=== PATIENT | male | born 1940 | race Caucasian/White ===

== ENCOUNTER → 2017-10-07 | Outpatient (CLI) | payer OTHER ==
[2017-10-07 09:12] LABS: BASO % 0.6 % (0.0-1.0); EOS # 0.1 10^3/uL (0.0-0.50); EOS % 1.8 % (0.0-3.0); HEMATOCRIT 46.6 % (42.0-52.0); HEMOGLOBIN 15.8 g/dl (14.0-18.0); IMMATURE GRANULOCYTE % 0.2 % (0-0); LYMPH # 0.6 10^3/uL (1.5-4.5); LYMPH % 12.3 % (24.0-44.0); MEAN CORPUSCULAR HEMOGLOBIN 30.9 pg (27.0-33.0); MEAN CORPUSCULAR HGB CONC 33.9 g/dl (32.0-36.5); MEAN CORPUSCULAR VOLUME 91.2 fl (80.0-96.0); MONO # 0.6 10^3/uL (0.0-0.8); MONO % 11.9 % (0.0-5.0); NEUTROPHILS # 3.6 10^3/uL (1.8-7.7); NEUTROPHILS % 73.2 % (36.0-66.0); PLATELET COUNT, AUTOMATED 174 10^3/uL (150-450); RED BLOOD COUNT 5.11 10^6/uL (4.30-6.10); RED CELL DISTRIBUTION WIDTH 13.9 % (11.5-14.5); WHITE BLOOD COUNT 4.9 10^3/uL (4.0-10.0)
[2017-10-07 09:45] LABS: ALBUMIN/GLOBULIN RATIO 1.18 (1.00-1.93); ALKALINE PHOSPHATASE 107 U/L (45-117); ALT/SGPT 23 U/L (12-78); ANION GAP 6 MEQ/L (8-16); AST/SGOT 27 U/L (7-37); BILIRUBIN,TOTAL 0.7 MG/DL (0.2-1.0); BLOOD UREA NITROGEN 17 MG/DL (7-18); CALCIUM LEVEL 9.6 MG/DL (8.8-10.2); CARBON DIOXIDE LEVEL 32 MEQ/L (21-32); CHLORIDE LEVEL 101 MEQ/L (98-107); CHOLESTEROL LEVEL 179 MG/DL (<200); CHOLESTEROL RISK RATIO 2.887 (<5); CREATININE FOR GFR 0.97 MG/DL (0.70-1.30); GLOMERULAR FILTRATION RATE > 60.0 (>42); GLUCOSE, FASTING 87 MG/DL (83-110); HDL CHOLESTEROL 62 MG/DL (>40); LDL CHOLESTEROL 83.4 MG/DL (<100); NON-HDL-C 117 MG/DL; POTASSIUM SERUM 3.9 MEQ/L (3.5-5.1); SODIUM LEVEL 139 MEQ/L (136-145); TOTAL PROTEIN 7.4 GM/DL (6.4-8.2); TRIGLYCERIDES LEVEL 168 MG/DL (<150)
== END ==
LOC: M LAB 08:09
DX: I10 Essential (primary) hypertension (principal)
CPT/HCPCS: 80053

== ENCOUNTER 2017-12-21 23:34 | Emergency (ER) | payer OTHER ==
[2017-12-22 00:26] LABS: BASO % 0.5 % (0.0-1.0); EOS # 0.1 10^3/uL (0.0-0.50); EOS % 2.1 % (0.0-3.0); HEMATOCRIT 43.5 % (42.0-52.0); HEMOGLOBIN 14.8 g/dl (13.5-17.5); IMMATURE GRANULOCYTE % 0.5 % (0-3.0); LYMPH # 1.7 10^3/uL (1.5-4.5); LYMPH % 26.4 % (24.0-44.0); MEAN CORPUSCULAR HEMOGLOBIN 30.7 pg (27.0-33.0); MEAN CORPUSCULAR VOLUME 90.2 fl (80.0-96.0); MONO # 0.6 10^3/uL (0.0-0.8); MONO % 9.6 % (0.0-5.0); NEUTROPHILS # 3.8 10^3/uL (1.8-7.7); NEUTROPHILS % 60.9 % (36.0-66.0); PLATELET COUNT, AUTOMATED 228 10^3/uL (150-450); RED BLOOD COUNT 4.82 10^6/uL (4.30-6.10); WHITE BLOOD COUNT 6.2 10^3/uL (4.0-10.0)
[2017-12-22 00:35] LABS: ALBUMIN 4.1 GM/DL (3.2-5.2); ALBUMIN/GLOBULIN RATIO 1.17 (1.00-1.93); ALKALINE PHOSPHATASE 106 U/L (45-117); ALT/SGPT 19 U/L (12-78); ANION GAP 5 MEQ/L (8-16); AST/SGOT 20 U/L (7-37); BILIRUBIN,DIRECT 0.1 MG/DL (0.0-0.2); BILIRUBIN,TOTAL 0.4 MG/DL (0.2-1.0); BLOOD UREA NITROGEN 19 MG/DL (7-18); CALCIUM LEVEL 9.4 MG/DL (8.8-10.2); CARBON DIOXIDE LEVEL 29 MEQ/L (21-32); CHLORIDE LEVEL 105 MEQ/L (98-107); CREATININE FOR GFR 0.85 MG/DL (0.70-1.30); GLOMERULAR FILTRATION RATE > 60.0 (>42); GLUCOSE, FASTING 101 MG/DL (70-100); POTASSIUM SERUM 3.7 MEQ/L (3.5-5.1); SODIUM LEVEL 139 MEQ/L (136-145); TOTAL PROTEIN 7.6 GM/DL (6.4-8.2)
[2017-12-22] MEDS: ONDANSETRON 4 MG ORAL DISINTEGRATING TAB (S0181) PO (01:00)
[2017-12-22] MEDS: MECLIZINE 25 MG TABLET PO (01:00)
== END 2017-12-22 01:00 | disposition home or self-care (01) ==
LOC: M ED 23:34
DX: R42 Dizziness and giddiness (principal); I10 Essential (primary) hypertension; E78.5 Hyperlipidemia, unspecified; Z87.19 Personal history of other diseases of the digestive system; Z85.46 Personal history of malignant neoplasm of prostate
CPT/HCPCS: 93005

== ENCOUNTER → 2018-08-25 | Outpatient (CLI) | payer OTHER ==
[2018-08-25 09:33] LABS: BASO # 0.1 10^3/uL (0.0-0.2); BASO % 0.8 % (0.0-1.0); EOS # 0.1 10^3/uL (0.0-0.50); EOS % 1.6 % (0.0-3.0); HEMATOCRIT 46.1 % (42.0-52.0); IMMATURE GRANULOCYTE % 0.2 % (0-3.0); LYMPH # 1.3 10^3/uL (1.5-4.5); LYMPH % 21.4 % (24.0-44.0); MEAN CORPUSCULAR HEMOGLOBIN 32.3 pg (27.0-33.0); MEAN CORPUSCULAR HGB CONC 34.7 g/dl (32.0-36.5); MEAN CORPUSCULAR VOLUME 92.9 fl (80.0-96.0); MONO # 0.6 10^3/uL (0.0-0.8); MONO % 9.8 % (0.0-5.0); NEUTROPHILS # 4.1 10^3/uL (1.8-7.7); NEUTROPHILS % 66.2 % (36.0-66.0); PLATELET COUNT, AUTOMATED 230 10^3/uL (150-450); RED BLOOD COUNT 4.96 10^6/uL (4.30-6.10); RED CELL DISTRIBUTION WIDTH 13.4 % (11.5-14.5); WHITE BLOOD COUNT 6.1 10^3/uL (4.0-10.0)
[2018-08-25 09:52] LABS: ALBUMIN 4.2 GM/DL (3.2-5.2); ALBUMIN/GLOBULIN RATIO 1.35 (1.00-1.93); ALKALINE PHOSPHATASE 103 U/L (45-117); ALT/SGPT 22 U/L (12-78); ANION GAP 6 MEQ/L (8-16); AST/SGOT 20 U/L (7-37); BILIRUBIN,TOTAL 0.9 MG/DL (0.2-1.0); BLOOD UREA NITROGEN 21 MG/DL (7-18); CALCIUM LEVEL 9.9 MG/DL (8.8-10.2); CARBON DIOXIDE LEVEL 30 MEQ/L (21-32); CHLORIDE LEVEL 102 MEQ/L (98-107); CHOLESTEROL LEVEL 214 MG/DL (<200); CHOLESTEROL RISK RATIO 3.962 (<5); CREATININE FOR GFR 1.08 MG/DL (0.70-1.30); GLOMERULAR FILTRATION RATE > 60.0 (>42); GLUCOSE, FASTING 98 MG/DL (70-100); HDL CHOLESTEROL 54 MG/DL (>40); LDL CHOLESTEROL 116 MG/DL (<100); NON-HDL-C 160 MG/DL; POTASSIUM SERUM 4.4 MEQ/L (3.5-5.1); SODIUM LEVEL 138 MEQ/L (136-145); TOTAL PROTEIN 7.3 GM/DL (6.4-8.2); TRIGLYCERIDES LEVEL 222 MG/DL (<150)
== END ==
LOC: M LAB 08:45
DX: I10 Essential (primary) hypertension (principal)
CPT/HCPCS: 80053

== ENCOUNTER → 2019-10-06 | Outpatient (CLI) | payer MEDICARE ==
[~2019-10-06] MED LIST: APRI0.37 PO; ATIV0.5T; ATIV1TAB2; ATOR40TA75 PO; AZATPOW; CENTTAB47 PO; CIPR500T19; COLA100C2; COLA100C5 PO; COLA50CA; CRES20TA; ENTOCORT; ENTOCORT EC; LISI20TA20 PO; LISI20TA5; LORA0.5T5 PO; MECL1TAB31 PO; ONDA-1; PENTASA; PRED20TA; PROT1TAB2; SUCR1TAB56; ZOFR4TAB14 PO; ZOLO50TA
[2019-10-06 09:23] LABS: HEMATOCRIT 47.9 % (42.0-52.0); HEMOGLOBIN 15.7 g/dl (13.5-17.5); MEAN CORPUSCULAR HEMOGLOBIN 30.8 pg (27.0-33.0); MEAN CORPUSCULAR HGB CONC 32.8 g/dl (32.0-36.5); MEAN CORPUSCULAR VOLUME 94.1 fl (80.0-96.0); PLATELET COUNT, AUTOMATED 205 10^3/uL (150-450); RED BLOOD COUNT 5.09 10^6/uL (4.30-6.10); WHITE BLOOD COUNT 5.7 10^3/uL (4.0-10.0)
[2019-10-06 09:49] LABS: ALBUMIN 4.2 GM/DL (3.2-5.2); ALT/SGPT 19 U/L (12-78); BLOOD UREA NITROGEN 18 MG/DL (7-18); CALCIUM LEVEL 9.3 MG/DL (8.8-10.2); CARBON DIOXIDE LEVEL 28 MEQ/L (21-32); CHLORIDE LEVEL 105 MEQ/L (98-107); CHOLESTEROL LEVEL 231 MG/DL (<200); CHOLESTEROL RISK RATIO 3.347 (<5); CREATININE FOR GFR 1.03 MG/DL (0.70-1.30); GLOMERULAR FILTRATION RATE > 60.0 (>35); GLUCOSE, FASTING 91 MG/DL (70-100); HDL CHOLESTEROL 69 MG/DL (>40); LDL CHOLESTEROL 112 MG/DL (<100); NON-HDL-C 162 MG/DL; POTASSIUM SERUM 3.9 MEQ/L (3.5-5.1); PROSTATIC SPECIFIC AG MONITOR 0.02 NG/ML (< 4.00); SODIUM LEVEL 141 MEQ/L (136-145); TOTAL PROTEIN 7.4 GM/DL (6.4-8.2); TRIGLYCERIDES LEVEL 248 MG/DL (<150)
== END ==
LOC: M LAB 09:03
PROVIDERS: ATTEND Family Medicine
DX: C61 Malignant neoplasm of prostate (principal); E78.00 Pure hypercholesterolemia, unspecified

== ENCOUNTER → 2020-04-04 | Outpatient (CLI) | payer MEDICARE ==
[2020-04-04 13:33] LABS: HEMATOCRIT 47.3 % (42.0-52.0); HEMOGLOBIN 16.1 g/dl (13.5-17.5); MEAN CORPUSCULAR HEMOGLOBIN 31.9 pg (27.0-33.0); MEAN CORPUSCULAR VOLUME 93.7 fl (80.0-96.0); PLATELET COUNT, AUTOMATED 246 10^3/uL (150-450); RED BLOOD COUNT 5.05 10^6/uL (4.30-6.10); WHITE BLOOD COUNT 6.9 10^3/uL (4.0-10.0)
[2020-04-04 14:02] LABS: ERYTHROCYTE SEDIMENTATION RATE 5 mm/hr (0-20)
[2020-04-04 14:16] LABS: ALBUMIN 4.4 GM/DL (3.2-5.2); ALT/SGPT 19 U/L (12-78); BILIRUBIN,DIRECT 0.2 MG/DL (0.0-0.2); BLOOD UREA NITROGEN 15 MG/DL (7-18); C REACTIVE PROTEIN QUANTITATIV < 0.30 MG/DL (0.00-0.30); CALCIUM LEVEL 10.1 MG/DL (8.8-10.2); CARBON DIOXIDE LEVEL 29 MEQ/L (21-32); CHLORIDE LEVEL 102 MEQ/L (98-107); CREATININE FOR GFR 1.04 MG/DL (0.70-1.30); GLOMERULAR FILTRATION RATE > 60.0 (>35); GLUCOSE, FASTING 84 MG/DL (70-100); LDH LACTATE DEHYDROGENASE 114 U/L (87-241); POTASSIUM SERUM 4.4 MEQ/L (3.5-5.1); PROSTATIC SPECIFIC AG MONITOR 0.02 NG/ML (< 4.00); SODIUM LEVEL 138 MEQ/L (136-145); THYROID STIMULATING HORMONE 0.215 uIU/ML (0.358-3.740); TOTAL PROTEIN 7.6 GM/DL (6.4-8.2)
[2020-04-04 14:36] LABS: APPEARANCE, URINE MANUAL CLOUDY (CLEAR); COLOR, URINE MANUAL YELLOW (YELLOW); GLUCOSE, URINE (UA) MANUAL NEGATIVE (NEGATIVE); PROTEIN, URINE MANUAL TRACE mg/dL (NEGATIVE)
[2020-04-04 14:38] LABS: BILIRUBIN, URINE MANUAL NEGATIVE (NEGATIVE); KETONE, URINE MANUAL NEGATIVE (NEGATIVE); UROBILINOGEN, URINE MANUAL NORMAL (NORMAL)
[2020-04-04 14:39] LABS: NITRITE, URINE MANUAL NEGATIVE (NEGATIVE)
[2020-04-04 14:40] LABS: BLOOD URINE MANUAL NEGATIVE (NEGATIVE); LEUKOCYTE ESTERASE, URINE MAN NEGATIVE (NEGATIVE)
[2020-04-04 14:41] LABS: RBC, URINE NONE SEEN /hpf (0-3); SQUAMOUS EPITHELIAL CELL URINE NONE SEEN /hpf (SMALL AMT); WBC, URINE NONE SEEN /hpf (0-3)
[2020-04-04 14:42] LABS: AMORPHOUS SEDIMENT, URINE LARGE AMOUNT (NEGATIVE); BACTERIA, URINE NONE SEEN; HYALINE CAST, URINE NONE SEEN /lpf (0-1)
--- NOTE | 2020-04-04 23:44 | REP ---
REASON FOR EXAM: Weight loss. Latest prior for comparison is 10/09/2012, a portable exam. Cardiomediastinal silhouette is within normal limits and essentially unchanged. The heart is not enlarged. There is mild lung field hyperexpansion. In the right upper lobe, there is a potential tiny nodule. This could represent a vessel en face; however, it was not present on the portable examination of 10/09/2012, nor was it present on the PA view of the chest of 12/05/2011. The lung del real are mildly hyperexpanded but otherwise clear. The heart is not enlarged. The pleural angles are sharp. The osseous structures are within normal limits for the patient's age. IMPRESSION: Possible small right upper lobe nodule, as described above. Contrast-enhanced CT examination of the chest should be considered. Electronically Signed by Jesus Billingsley DO 04/05/2020 11:32 A
== END ==
LOC: M WUC 11:39
PROVIDERS: ATTEND Family Medicine
DX: R63.4 Abnormal weight loss (principal); C61 Malignant neoplasm of prostate; R91.8 Other nonspecific abnormal finding of lung field

== ENCOUNTER → 2020-04-21 | Outpatient (REF) | payer MEDICARE ==
[2020-05-22 06:20] LABS: FREE T3 3.5 PG/ML (2.2-4.0); FREE T4 1.24 NG/DL (0.76-1.46); THYROID STIMULATING HORMONE 0.165 uIU/ML (0.358-3.740)
== END ==
LOC: M WUC 13:53
PROVIDERS: ATTEND Family Medicine
DX: E07.9 Disorder of thyroid, unspecified (principal)

== ENCOUNTER → 2020-07-06 | Outpatient (CLI) | payer MEDICARE ==
[2020-07-06 13:44] LABS: FREE T3 3.3 PG/ML (2.2-4.0); FREE T4 1.12 NG/DL (0.76-1.46); THYROID STIMULATING HORMONE 0.398 uIU/ML (0.358-3.740)
== END ==
LOC: M WUC 10:28
PROVIDERS: ATTEND Family Medicine
DX: E07.9 Disorder of thyroid, unspecified (principal)

== ENCOUNTER → 2020-07-12 | Outpatient (CLI) | payer MEDICARE ==
[2020-07-12 20:24] LABS: BLOOD UREA NITROGEN 17 MG/DL (7-18); CALCIUM LEVEL 9.8 MG/DL (8.8-10.2); CARBON DIOXIDE LEVEL 30 MEQ/L (21-32); CHLORIDE LEVEL 103 MEQ/L (98-107); CREATININE FOR GFR 1.07 MG/DL (0.70-1.30); GLOMERULAR FILTRATION RATE > 60.0 (>35); GLUCOSE, FASTING 73 MG/DL (70-100); POTASSIUM SERUM 4.3 MEQ/L (3.5-5.1); SODIUM LEVEL 139 MEQ/L (136-145)
== END ==
LOC: M WUC 15:32
PROVIDERS: ATTEND Family Medicine
DX: I10 Essential (primary) hypertension (principal)

== ENCOUNTER → 2020-07-15 | Outpatient (CLI) | payer MEDICARE ==
[~2020-07-15] MED LIST changes: +ISOVUE-370 76% 100ML VIAL As Ordered ONE
--- NOTE | 2020-07-15 12:24 | REP ---
INDICATION: SOLITARY PULMONARY NODULE COMPARISON: 08/26/2009 TECHNIQUE: Axial contrast enhanced images from the thoracic inlet to the upper abdomen with coronal and sagittal reformations using 75 ml Isovue 370 intravenous contrast material. This CT examination was performed using the following dose reduction techniques: Automated exposure control, adjustment of mA and/or kv according to the patient's size, and use of iterative reconstruction technique. FINDINGS: The bilateral lung del real are relatively well aerated and demonstrate chronic age-related interstitial changes with very minimal basilar scarring. The questionable tiny nodule suggested on recent x-ray may be related to a very small 4 mm area of density in the right upper lobe (image 31) which is otherwise nonspecific and may represent small scar versus nodule. No further consolidation or suspicious nodule/mass. Tracheobronchial tree is patent. No effusion. No pneumothorax. No significant adenopathy is appreciated. Mediastinum demonstrates relatively normal thoracic aorta, pulmonary vasculature, and heart/pericardium although mild atherosclerotic changes to the coronary arteries is suggested. The osseous structures demonstrate osteopenia and degenerative changes throughout the visualized thoracolumbar spine. Somewhat irregular lytic changes involving T9-T11 are nonspecific. IMPRESSION: 1. The possible tiny nodule on chest x-ray may correspond to a small 3-4 mm somewhat irregular nodule versus scar in the right upper lobe. Based on Fleischner society criteria, a 12 month follow-up examination may be warranted to confirm stability <Electronically signed by Chris Mckeon > 07/15/20 [id number]
== END ==
LOC: M RAD 10:23
PROVIDERS: ATTEND Family Medicine
DX: R91.1 Solitary pulmonary nodule (principal)
CPT/HCPCS: 71260; Q9967

== ENCOUNTER → 2020-09-08 | Outpatient (CLI) | payer MEDICARE ==
[~2020-09-08] MED LIST changes: -ISOVUE-370 76% 100ML VIAL As Ordered ONE
== END ==
LOC: M LABSMTC 13:03
PROVIDERS: ATTEND Pediatrics
DX: Z11.59 Encounter for screening for other viral diseases (principal)

== ENCOUNTER 2020-09-23 15:03 | Emergency (ER) | payer MEDICARE ==
[~2020-09-23] VITALS: Ht 165.1 cm; Wt 62.3 kg
[2020-09-23] MEDS ORDERED: NS 1,000 ML IV SCH (15:22)
[2020-09-23] MEDS ORDERED: NS 500 ML IV ONE (15:30)
[2020-09-23] MEDS ORDERED: ONDANSETRON 4MG/2ML VIAL IV ONE (15:30)
[2020-09-23 16:03] LABS: BASO % 0.5 % (0.0-1.0); EOS # 0.1 10^3/uL (0.0-0.5); HEMATOCRIT 47.3 % (42.0-52.0); HEMOGLOBIN 15.7 g/dl (13.5-17.5); LYMPH # 1.4 10^3/uL (1.5-5.0); LYMPH % 16.9 % (24.0-44.0); MEAN CORPUSCULAR HEMOGLOBIN 30.1 pg (27.0-33.0); MEAN CORPUSCULAR HGB CONC 33.2 g/dl (32.0-36.5); MEAN CORPUSCULAR VOLUME 90.8 fl (80.0-96.0); MONO # 0.6 10^3/uL (0.0-0.8); MONO % 7.3 % (0.0-5.0); NEUTROPHILS # 6.1 10^3/uL (1.5-8.5); NEUTROPHILS % 73.9 % (36.0-66.0); PLATELET COUNT, AUTOMATED 256 10^3/uL (150-450); RED BLOOD COUNT 5.21 10^6/uL (4.30-6.10); WHITE BLOOD COUNT 8.3 10^3/uL (4.0-10.0)
[2020-09-23 16:35] LABS: ALBUMIN 3.6 GM/DL (3.2-5.2); ALT/SGPT 18 U/L (12-78); BILIRUBIN,DIRECT 0.1 MG/DL (0.0-0.2); BILIRUBIN,TOTAL 0.5 MG/DL (0.2-1.0); BLOOD UREA NITROGEN 19 MG/DL (7-18); CALCIUM LEVEL 9.3 MG/DL (8.8-10.2); CARBON DIOXIDE LEVEL 29 MEQ/L (21-32); CHLORIDE LEVEL 104 MEQ/L (98-107); CK-MB VALUE MASS < 1.0 NG/ML (<3.6); CPK CREATINE PHOSPHOKINASE 41 U/L (39-308); CREATININE FOR GFR 0.95 MG/DL (0.70-1.30); GLOMERULAR FILTRATION RATE > 60.0 (>35); GLUCOSE, FASTING 85 MG/DL (70-100); LIPASE 162 U/L (73-393); MB/CK RELATIVE INDEX 2.44 (< OR =4); POTASSIUM SERUM 4.4 MEQ/L (3.5-5.1); SODIUM LEVEL 139 MEQ/L (136-145); TOTAL PROTEIN 6.8 GM/DL (6.4-8.2); TROPONIN I < 0.02 NG/ML (< 0.10)
[2020-09-23] MEDS ORDERED: ISOVUE-370 76% 100ML VIAL As Ordered ONE (16:51)
--- NOTE | 2020-09-23 17:29 | REP ---
INDICATION: abd pain nausea. COMPARISON: 08/05/2009 TECHNIQUE: Axial contrast-enhanced images from the lung bases to the pubic symphysis using 100 cc Isovue 370 intravenous contrast material. Coronal and sagittal reformations obtained. This CT examination was performed using the following dose reduction techniques: Automated exposure control, adjustment of mA and/or kv according to the patient's size, and the use of iterative reconstruction technique. FINDINGS: Liver, spleen, pancreas, gallbladder, bilateral adrenal glands and kidneys are normal. The enteric system demonstrates mild fecal stasis without obstruction. Normal terminal ileum and appendix identified in the right lower quadrant. A very subtle enteritis cannot be excluded. No free air. No free fluid. Pelvis demonstrates normal bladder and age-appropriate prostate/seminal vesicles. No ascites. No free air. No intraperitoneal or retroperitoneal adenopathy. Atherosclerotic changes to the aorta and vasculature noted without aneurysm or dissection. Musculoskeletal structures demonstrate irregular lytic changes to the T7 through T10 vertebral bodies unchanged compared to CT dated 07/15/2020 along with possible mild compression deformity along the superior endplate of L5. IMPRESSION: 1. Mild fecal stasis. Very subtle enteritis cannot be excluded and warrants clinical correlation. 2. No further acute abdominopelvic pathology appreciated. Chronic findings as described above. 3. Chronic lytic changes to the visualized thoracic vertebral bodies along with mild compression deformity along the superior endplate of L5 which is of indeterminate age. <Electronically signed by Chris Mckeon > 09/23/20 [id number]
[2020-09-23] MEDS ORDERED: ZOFR4TAB16 PO (17:42)
[2020-09-23 17:55] VITALS: BP 139/72
--- NOTE | 2020-09-24 08:48 | ED PDOC ---
Post-Departure Follow-Up radiology report faxed to Iesha Brambila MD Sep 24, 2020 08:48
--- NOTE | 2020-09-24 09:23 | ECGEPIP ---
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
== END 2020-09-23 18:17 | disposition home or self-care (01) ==
LOC: M ED 15:03 → EDBD 15:03 → M ED 18:17
DX: R11.0 Nausea (principal); K51.90 Ulcerative colitis, unspecified, without complications; I10 Essential (primary) hypertension; E78.5 Hyperlipidemia, unspecified; E07.9 Disorder of thyroid, unspecified; J45.909 Unspecified asthma, uncomplicated; Z88.5 Allergy status to narcotic agent; Z88.8 Allergy status to other drugs, medicaments and biological substances; Z79.899 Other long term (current) drug therapy; Z85.45 Personal history of malignant neoplasm of unspecified male genital organ
CPT/HCPCS: 74177; 80048; 80076; 82550; 82553; 83690; 84484; 85025; 93005; 96361; 96374; 99284; J2405; Q9967

== ENCOUNTER 2020-12-04 13:06 | Inpatient (IN) | payer MEDICARE ==
[~2020-12-04] VITALS: Ht 165.1 cm; Wt 57.0 kg
[~2020-12-04 13:06] MED LIST changes: +ZOFR4TAB16 PO; -ZOLO50TA; +ZOLO50TA PO
[2020-12-04] MEDS ORDERED: SULF500T2 PO (13:30)
[2020-12-04] MEDS ORDERED: NOXI1TAB PO (13:30)
[2020-12-04] MEDS ORDERED: CARB25TA9 PO (13:30)
[2020-12-04] MEDS ORDERED: ASPI81CH33 PO (13:30)
--- NOTE | 2020-12-04 13:32 | REP ---
INDICATION: CHEST PAIN COMPARISON: 04/04/2020 TECHNIQUE: Portable AP view of the chest FINDINGS: The mediastinum and cardiac silhouette are stable and within normal limits for portable technique. The lung del real demonstrate chronic changes similar to prior examination. Previous small granuloma again identified and appears essentially unchanged. No acute consolidation, effusion, or pneumothorax. Skeletal structures demonstrate age-related changes. IMPRESSION: No acute cardiopulmonary process appreciated. <Electronically signed by Chris Mckeon > 12/04/20 [id number]
[2020-12-04 13:58] LABS: BASO % 0.5 % (0.0-1.0); EOS # 0.1 10^3/uL (0.0-0.5); HEMATOCRIT 45.5 % (42.0-52.0); LYMPH # 0.8 10^3/uL (1.5-5.0); MEAN CORPUSCULAR HEMOGLOBIN 29.6 pg (27.0-33.0); MEAN CORPUSCULAR VOLUME 89.9 fl (80.0-96.0); MONO # 0.8 10^3/uL (0.0-0.8); MONO % 12.4 % (2.0-8.0); NEUTROPHILS # 4.6 10^3/uL (1.5-8.5); NEUTROPHILS % 73.8 % (36.0-66.0); PLATELET COUNT, AUTOMATED 248 10^3/uL (150-450); RED BLOOD COUNT 5.06 10^6/uL (4.30-6.10); WHITE BLOOD COUNT 6.2 10^3/uL (4.0-10.0)
[2020-12-04 14:08] LABS: INR 0.97; PARTIAL THROMBOPLASTIN TIME 28.1 SECONDS (24.2-38.5); PROTHROMBIN TIME 13.1 SECONDS (12.5-14.3)
[2020-12-04 14:31] LABS: ALBUMIN 3.9 GM/DL (3.2-5.2); ALT/SGPT 15 U/L (12-78); BILIRUBIN,DIRECT 0.1 MG/DL (0.0-0.2); BILIRUBIN,TOTAL 0.4 MG/DL (0.2-1.0); BLOOD UREA NITROGEN 12 MG/DL (7-18); CALCIUM LEVEL 9.7 MG/DL (8.8-10.2); CARBON DIOXIDE LEVEL 28 MEQ/L (21-32); CHLORIDE LEVEL 101 MEQ/L (98-107); CK-MB VALUE MASS < 1.0 NG/ML (<3.6); CPK CREATINE PHOSPHOKINASE 31 U/L (39-308); CREATININE FOR GFR 0.78 MG/DL (0.70-1.30); GLOMERULAR FILTRATION RATE > 60.0 (>35); GLUCOSE, FASTING 126 MG/DL (70-100); LIPASE 206 U/L (73-393); MB/CK RELATIVE INDEX 3.23 (< OR =4); NT-PRO BNP 225 PG/ML (<450); POTASSIUM SERUM 3.8 MEQ/L (3.5-5.1); SODIUM LEVEL 134 MEQ/L (136-145); THYROID STIMULATING HORMONE 0.618 uIU/ML (0.358-3.740); TROPONIN I < 0.02 NG/ML (< 0.10)
[2020-12-04] MEDS ORDERED: D31000TA2 PO (16:24)
[2020-12-04] MEDS ORDERED: ASPI81TA26 PO (16:24)
[2020-12-04] MEDS ORDERED: PANT40TA29 PO (16:24)
[2020-12-04] MEDS ORDERED: MULT1TAB74 PO (16:24)
[2020-12-04] MEDS ORDERED: ATIV1TAB10 PO (16:24)
[2020-12-04] MEDS ORDERED: ZOLO100T PO (16:24)
[2020-12-04 17:18] LABS: RSV AMPLIFICATION NEGATIVE (NEGATIVE)
[2020-12-04] MEDS ORDERED: LORazepam 0.5 MG TAB PO PRN (17:20)
[2020-12-04 19:00] VITALS: BP 146/84
--- NOTE | 2020-12-04 19:05 | HPEPDOC ---
General Date of Admission 12/04/20 Date of Service: Dec 04, 2020 Chief Complaint The patient is a 80-year-old male admitted with a reason for visit of WEAK. Source: Patient, RN/MD History of Present Illness 80 year old male with HTN, HLD, Parkinson's disease, inflammatory bowel disease, hiatal hernia, presented to the hospital for waekness and falls at home. Patient says that he came because of headache, stomach problem and weakness. He tends to repeat same word several times. He reports that he has no appetite, his stomach is off for the past 4 to 5 days. But no pain or nausea or vomiting or diarrhea He reports that he has lost about 10 lbs of weight in the past 3 months and he has been feeling very weak. He denies any swallowing difficulty or any choking episodes. He says he fell 4 to 5 times in the past 6 months in the shower, on the stirs. He says these are all because he lost his balance and could not stop himself. He denies loosing any consciousness. Daughter reported to ED staff that he has been very weak and dizzy and has been falling frequently. He was started on Sinemet 3 weeks ago. Last 2 days has been very bad. Today he was so weak that he could not walk unassited and he could hardly even lift a cup. Once his other daughter found him on the floor drooling and incoherent. He was recently started on antiparkinsonian medicine. In the Ed he was noted to be in Bigemini and had some episodes of NSVT. Home Medications Scheduled Aspirin (Aspirin EC) 81 Mg Tablet.dr, 81 MG PO DAILY, (Reported) Atorvastatin Calcium (Atorvastatin Calcium) 40 Mg Tab, 40 MG PO DAILY, (Reported) Carbidopa/Levodopa (Carbidopa-Levodopa 25-100 Tab) 1 Each Tablet, 0.5 TAB PO TID, (Reported) 0700, LUNCH, 1900 Cholecalciferol (Vitamin D3) (Vitamin D3) 1,000 Unit Tablet, 1,000 UNITS PO DAILY, (Reported) Lisinopril/Hydrochlorothiazide (Lisinopril-Hctz 20-25 mg Tab) 1 Tab Tab, 0.5 TAB PO QHS, (Reported) Multivitamin (Multivitamins) 1 Each Tablet, 1 TAB PO DAILY, (Reported) Pantoprazole Sodium (Pantoprazole Sodium) 40 Mg Tablet.dr, 40 MG PO DAILY, (Reported) Sertraline Hcl (Zoloft) 100 Mg Tablet, 100 MG PO DAILY, (Reported) Sulfasalazine (Sulfasalazine) 500 Mg Tablet, 500 MG PO TID, (Reported) Scheduled PRN Lorazepam (Ativan) 0.5 Mg Tablet, 0.5 MG PO BID PRN for ANXIETY/AGITATION, (Reported) Allergies Coded Allergies: No Known Drug Allergies (Verified Allergy, Unknown, 09/23/20) codeine (Verified Adverse Reaction, Mild, 09/23/20) vomit meperidine (Verified Adverse Reaction, Mild, 09/23/20) vomit morphine (Verified Adverse Reaction, Mild, 09/23/20) vomit nalbuphine (Verified Adverse Reaction, Mild, 09/23/20) vomit Past Medical History Medical History Parkinson's disease inflammatory bowel dis HLD HTN Hiatal hernia Internal hemorrhoids. prostate cancer has seeds implanted 15 years ago. Surgical History hernia repair repair of torn rotator cuff Family History Significant Family History: Cancer (Mother and father.Both ) Social History * Smoker: former Smoker Alcohol: rarely Drugs: denies A-FIB/CHADSVASC A-FIB History Current/History of A-Fib/PAF?: No Review of Systems Constitutional: Reports: Weakness, Weight Loss; Denies: Chills, Fever, Night Sweats Eyes: Denies: Pain, Vision change ENT: Reports: Head Aches; Denies: Dysphagia, Sinus Congestion, Sore Throat Pulmonary: Denies: Dyspnea, Cough Cardiovascular: Reports: Lt Headedness; Denies: Chest Pain, Palpitations, Orthopnea, Paroxysmal Noc. Dyspnea Gastrointestinal: Denies: Nausea, Vomiting, Abdominal Pain, Diarrhea Genitourinary: Denies: Dysuria, Frequency, Incontinence, Retention Hematologic: Denies: Bruising, Bleeding Excessively Neurological: Reports: Weakness, Change in speech Physical Examination General Exam: Positive: Alert, Cooperative, No Acute Distress Eye Exam: Positive: PERRLA, Conjunctiva & lids normal, EOMI; Negative: Sclera icteric ENT Exam: Positive: Atraumatic, Mucous membr. moist/pink, Pharynx Normal Neck Exam: Positive: Supple; Negative: JVD, thyromegaly Chest Exam: Positive: Clear to auscultation, Normal air movement Heart Exam: Positive: Rate Normal, Regular Rhythm, Normal S1, Normal S2; Negative: Murmurs, Rubs Telemetry: Positive: Other Telemetry: (bigemini rhythm, NSVTs) Abdomen Exam: Positive: Normal bowel sounds, Soft; Negative: Tenderness, Hepatospenomegaly Extremity Exam: Negative: Clubbing, Cyanosis, Edema Skin Exam: Positive: Nl turgor and temperature; Negative: Breakdown, Lesion Neuro Exam: Positive: Strength at 5/5 X4 ext, Normal Tone, Other (palilalia); Negative: Sensation Intact Psych Exam: Positive: Memory Intact, Oriented x 3 Vital Signs Vital Signs Date Time Temp Pulse Resp B/P (MAP) Pulse Ox O2 Delivery O2 Flow Rate FiO2 12/04/20 15:30 97.8 77 20 150/65 (93) 94 Room Air Laboratory Data Labs 24H Laboratory Tests 2 12/04/20 13:39: Immature Granulocyte % (Auto) 0.3, Neutrophils (%) (Auto) 73.8H, Lymphocytes (%) (Auto) 12.0L, Monocytes (%) (Auto) 12.4H, Eosinophils (%) (Auto) 1.0, Basophils (%) (Auto) 0.5, Neutrophils # (Auto) 4.6, Lymphocytes # (Auto) 0.8L, Monocytes # (Auto) 0.8, Eosinophils # (Auto) 0.1, Basophils # (Auto) 0.0, Nucleated Red Blood Cells % (auto) 0.0, Prothrombin Time 13.1, Prothromb Time International Ratio 0.97, Activated Partial Thromboplast Time 28.1, Anion Gap 5L, Glomerular Filtration Rate > 60.0, Calcium Level 9.7, Total Bilirubin 0.4, Direct Bilirubin 0.1, Aspartate Amino Transf (AST/SGOT) 11, Alanine Aminotransferase (ALT/SGPT) 15, Alkaline Phosphatase 91, Total Creatine Kinase 31L, Creatine Kinase MB < 1.0, Creatine Kinase MB Relative Index 3.23, Troponin I < 0.02, AD-Dtx-D-Type Natriuretic Peptide 225, Total Protein 7.0, Albumin 3.9, Albumin/Globulin Ratio 1.3, Lipase 206, Thyroid Stimulating Hormone (TSH) 0.618 CBC/BMP Laboratory Tests 12/04/20 13:39 Assessment/Plan 80 year old male with HTN, HLD, Parkinson's disease, inflammatory bowel disease, hiatal hernia, presented to the hospital for weakness, dizziness and falls at home. Patient says that he came because of headache, stomach problem and weakness. In the ED he was noted to be in Bigemini rhythm with some NSVTs. Cardiac arrhythmias could be related to Sinemet newly started will stop it and monitor. telemetry Poor appetite, dizziness could also be related to Sinemet will stop it will also stop HCTZ check orthostatic vitals and place on telemetry Weakness and falls this could be due to due to parkinson's disease itself or a side effect of medication Pt/Ot. HTN will cont lisinopril 10 mg, stop HCTZ HLD patient has lost 10 kgs in the last 10 years likely due to Sarcopenia, age related decrease in appetite. Will reduce statin. check lipid panel. Plan / VTE VTE Prophylaxis Ordered?: Yes SALTY VALIENTE MD Dec 04, 2020 16:34
--- NOTE | 2020-12-04 19:18 | ECGEPIP ---
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
[2020-12-04] MEDS: ENOXAPARIN 40MG/0.4ML SYRINGE (J1650 PER 10MG) SC SCH (19:49)
[2020-12-04 23:40] LABS: BLOOD UREA NITROGEN 10 MG/DL (7-18); CALCIUM LEVEL 9.3 MG/DL (8.8-10.2); CARBON DIOXIDE LEVEL 28 MEQ/L (21-32); CHLORIDE LEVEL 102 MEQ/L (98-107); CREATININE FOR GFR 0.73 MG/DL (0.70-1.30); GLOMERULAR FILTRATION RATE > 60.0 (>35); GLUCOSE, FASTING 96 MG/DL (70-100); POTASSIUM SERUM 3.8 MEQ/L (3.5-5.1); SODIUM LEVEL 137 MEQ/L (136-145)
[2020-12-05] VITALS (7 sets, daily range): BP systolic 118–143; BP diastolic 58–72
[2020-12-05 06:09] LABS: BASO % 0.6 % (0.0-1.0); EOS # 0.1 10^3/uL (0.0-0.5); EOS % 1.3 % (0.0-3.0); HEMATOCRIT 43.9 % (42.0-52.0); HEMOGLOBIN 14.6 g/dl (13.5-17.5); LYMPH % 16.4 % (24.0-44.0); MEAN CORPUSCULAR HGB CONC 33.3 g/dl (32.0-36.5); MEAN CORPUSCULAR VOLUME 90.1 fl (80.0-96.0); MONO # 0.7 10^3/uL (0.0-0.8); MONO % 11.9 % (2.0-8.0); NEUTROPHILS # 4.3 10^3/uL (1.5-8.5); NEUTROPHILS % 69.5 % (36.0-66.0); PLATELET COUNT, AUTOMATED 207 10^3/uL (150-450); RED BLOOD COUNT 4.87 10^6/uL (4.30-6.10); WHITE BLOOD COUNT 6.2 10^3/uL (4.0-10.0)
[2020-12-05 06:33] LABS: BLOOD UREA NITROGEN 11 MG/DL (7-18); CALCIUM LEVEL 9.6 MG/DL (8.8-10.2); CARBON DIOXIDE LEVEL 30 MEQ/L (21-32); CHLORIDE LEVEL 102 MEQ/L (98-107); CHOLESTEROL LEVEL 167 MG/DL (<200); CREATININE FOR GFR 0.94 MG/DL (0.70-1.30); GLOMERULAR FILTRATION RATE > 60.0 (>35); GLUCOSE, FASTING 88 MG/DL (70-100); HDL CHOLESTEROL 50 MG/DL (>40); LDL CHOLESTEROL 84 MG/DL (<100); NON-HDL-C 117 MG/DL; POTASSIUM SERUM 4.7 MEQ/L (3.5-5.1); SODIUM LEVEL 137 MEQ/L (136-145); TRIGLYCERIDES LEVEL 163 MG/DL (<150)
[2020-12-05] MEDS ORDERED: SLF 3 ML SYR IV PRN (07:55)
[2020-12-05] MEDS: PANTOPRAZOLE 40MG TAB (PROTONIX) PO SCH (08:43)
[2020-12-05] MEDS: SERTRALINE 100 MG TAB PO SCH (08:43)
[2020-12-05] MEDS: ATORVASTATIN 20 MG TAB PO SCH (08:43)
[2020-12-05] MEDS: ASPIRIN 81MG ENTERIC TABLET PO SCH (08:43)
[2020-12-05] MEDS ORDERED: ATORVASTATIN 20 MG TAB PO SCH (09:00)
[2020-12-05] MEDS ORDERED: hydroCHLOROthiazide 12.5 MG CAPSULE PO SCH (09:00)
--- NOTE | 2020-12-05 10:48 | IPNPDOC ---
Subjective Date Seen The patient was seen on 12/05/20. Subjective Chief Complaint/HPI Continues to have palilalia, poor appetite. He is having frequency of urination with very small amounts of output. Spoke with daughter Vivian and updated her. Objective Physical Examination General Exam: Positive: Alert, Cooperative, No Acute Distress Eye Exam: Positive: PERRLA, Conjunctiva & lids normal, EOMI; Negative: Sclera icteric ENT Exam: Positive: Atraumatic, Mucous membr. moist/pink, Pharynx Normal Neck Exam: Positive: Supple; Negative: JVD, thyromegaly Chest Exam: Positive: Clear to auscultation, Normal air movement Heart Exam: Positive: Rate Normal, Regular Rhythm, Normal S1, Normal S2; Negative: Murmurs, Rubs Telemetry: Positive: Other Telemetry: (bigemini rhythm, NSVTs) Abdomen Exam: Positive: Normal bowel sounds, Soft; Negative: Tenderness, Hepatospenomegaly Extremity Exam: Negative: Clubbing, Cyanosis, Edema Skin Exam: Positive: Nl turgor and temperature; Negative: Breakdown, Lesion Neuro Exam: Positive: Strength at 5/5 X4 ext, Normal Tone, Other (palilalia); Negative: Sensation Intact Psych Exam: Positive: Memory Intact, Oriented x 3 Assessment /Plan Assessment 80 year old male with HTN, HLD, Parkinson's disease, inflammatory bowel disease, hiatal hernia, presented to the hospital for weakness, dizziness and falls at home. Patient says that he came because of headache, stomach problem and weakness. In the ED he was noted to be in Bigemini rhythm with some NSVTs. Cardiac arrhythmias/ Bigeminis/ NSVT could be related to Sinemet newly started will stop it and monitor. telemetry Orthostatic hypotension/ dizziness/ falls could be related to Parkinson's disease itself vs medication for parkinson disease will stop HCTZ and lisinopril and monitor may need to start fludrocortisone if needed. Poor appetite could also be related to Sinemet. this was stopped. Weakness and falls he has positive orthostatic hypotension this could be due to due to Parkinson's disease itself or a side effect of medication have dced his bp meds. will monitor PT/OT HTN blood pressure well controlled with large orthostatic drop. stopped home meds. HLD patient has lost 10 kgs in the last 3 years likely due to Sarcopenia, age related decrease in appetite. Lipid panel well controlled. Will reduce statin. Plan/VTE VTE Prophylaxis Ordered?: Yes VS, I&O, 24H, Fishbone Vital Signs/I&O Vital Signs Date Time Temp Pulse Resp B/P (MAP) Pulse Ox O2 Delivery O2 Flow Rate FiO2 12/05/20 08:43 124/58 12/05/20 08:00 97.6 40 18 97 Room Air I&O- Last 24 Hours up to 6 AM 12/05/20 05:59 Intake Total 0 ml Output Total 120 ml Balance -120 ml Laboratory Data 24H LABS Laboratory Tests 2 12/04/20 13:39: Immature Granulocyte % (Auto) 0.3, Neutrophils (%) (Auto) 73.8H, Lymphocytes (%) (Auto) 12.0L, Monocytes (%) (Auto) 12.4H, Eosinophils (%) (Auto) 1.0, Basophils (%) (Auto) 0.5, Neutrophils # (Auto) 4.6, Lymphocytes # (Auto) 0.8L, Monocytes # (Auto) 0.8, Eosinophils # (Auto) 0.1, Basophils # (Auto) 0.0, Nucleated Red Blood Cells % (auto) 0.0, Prothrombin Time 13.1, Prothromb Time International Ratio 0.97, Activated Partial Thromboplast Time 28.1, Anion Gap 5L, Glomerular Filtration Rate > 60.0, Calcium Level 9.7, Total Bilirubin 0.4, Direct Bilirubin 0.1, Aspartate Amino Transf (AST/SGOT) 11, Alanine Aminotransferase (ALT/SGPT) 15, Alkaline Phosphatase 91, Total Creatine Kinase 31L, Creatine Kinase MB < 1.0, Creatine Kinase MB Relative Index 3.23, Troponin I < 0.02, MI-Wyl-G-Type Natriuretic Peptide 225, Total Protein 7.0, Albumin 3.9, Albumin/Globulin Ratio 1.3, Lipase 206, Thyroid Stimulating Hormone (TSH) 0.618 12/04/20 16:34: Coronavirus (COVID-19)(PCR) NEGATIVE, Influenza Type A (RT-PCR) NEGATIVE, Influenza Type B (RT-PCR) NEGATIVE, Respiratory Syncytial Virus (PCR) NEGATIVE 12/04/20 23:02: Anion Gap 7L, Glomerular Filtration Rate > 60.0, Calcium Level 9.3, Magnesium Level 2.0 12/05/20 05:38: Immature Granulocyte % (Auto) 0.3, Neutrophils (%) (Auto) 69.5H, Lymphocytes (%) (Auto) 16.4L, Monocytes (%) (Auto) 11.9H, Eosinophils (%) (Auto) 1.3, Basophils (%) (Auto) 0.6, Neutrophils # (Auto) 4.3, Lymphocytes # (Auto) 1.0L, Monocytes # (Auto) 0.7, Eosinophils # (Auto) 0.1, Basophils # (Auto) 0.0, Nucleated Red Blood Cells % (auto) 0.0, Anion Gap 5L, Glomerular Filtration Rate > 60.0, Calcium Level 9.6, Triglycerides Level 163H, Total Cholesterol 167, LDL Cholesterol 84, Non-HDL Cholesterol (LDL + VLDL) 117, Total HDL Cholesterol 50, Cholesterol/HDL Ratio 3.340 CBC/BMP Laboratory Tests 12/04/20 13:39 12/04/20 23:02 12/05/20 05:38 SALTY VALIENTE MD Dec 05, 2020 10:48
[2020-12-05] MEDS: sulfaSALAzine 500 MG TABEC PO SCH ×2 (11:55→19:34)
[2020-12-05] MEDS ORDERED: ACETAMINOPHEN TAB 650MG DOSE (2X325MG) PO PRN (12:15)
[2020-12-05] MEDS: SLF 3 ML SYR IV SCH ×2 (17:57→19:37)
[2020-12-05] MEDS: ENOXAPARIN 40MG/0.4ML SYRINGE (J1650 PER 10MG) SC SCH (19:34)
[2020-12-05] MEDS: LORazepam 0.5 MG TAB PO SCH (19:34)
--- NOTE | 2020-12-05 20:46 | REPVR ---
PROCEDURE INFORMATION: Exam: MR Head Without Contrast Exam date and time: 12/05/2020 8:24 PM Age: 80 years old Clinical indication: Dizziness; Additional info: Stroke TECHNIQUE: Imaging protocol: MR of the head without contrast. COMPARISON: No relevant prior studies available. FINDINGS: Brain: Multiple foci of T2 lengthening are demonstrated in the subcortical, periventricular and centrum semiovale white matter consistent with age-related small vessel gliosis. Moderate age related parenchymal atrophy. Diffuse cerebellar atrophy. Cerebral ventricles: Normal. No ventriculomegaly. Bones/joints: Unremarkable. Paranasal sinuses: Normal as visualized. No acute sinusitis. Mastoid air cells: Normal as visualized. No mastoid effusion. Orbital cavity: Unremarkable. Soft tissues: Unremarkable. IMPRESSION: 1. Multiple foci of T2 lengthening are demonstrated in the subcortical, periventricular and centrum semiovale white matter consistent with age-related small vessel gliosis. 2. Moderate age related parenchymal atrophy. 3. Diffuse cerebellar atrophy. 4. No acute findings. Electronically signed by: Yovani Bowers On 12/05/2020 20:46:23 PM
[2020-12-05] MEDS ORDERED: lisinopriL 5 MG TAB PO SCH (21:00)
[2020-12-05] MEDS ORDERED: RAMELTEON 8 MG TAB (ROZEREM) PO PRN (21:30)
[2020-12-06] VITALS (7 sets, daily range): BP systolic 78–125; BP diastolic 50–68
[2020-12-06] MEDS: SLF 3 ML SYR IV SCH ×3 (04:50→20:24)
[2020-12-06 05:58] LABS: BASO % 0.6 % (0.0-1.0); EOS # 0.1 10^3/uL (0.0-0.5); LYMPH # 1.1 10^3/uL (1.5-5.0); LYMPH % 16.3 % (24.0-44.0); MEAN CORPUSCULAR HEMOGLOBIN 29.4 pg (27.0-33.0); MEAN CORPUSCULAR HGB CONC 32.6 g/dl (32.0-36.5); MEAN CORPUSCULAR VOLUME 90.3 fl (80.0-96.0); MONO # 0.8 10^3/uL (0.0-0.8); NEUTROPHILS # 4.8 10^3/uL (1.5-8.5); NEUTROPHILS % 69.8 % (36.0-66.0); PLATELET COUNT, AUTOMATED 226 10^3/uL (150-450); RED BLOOD COUNT 4.76 10^6/uL (4.30-6.10); WHITE BLOOD COUNT 6.8 10^3/uL (4.0-10.0)
[2020-12-06 06:22] LABS: BLOOD UREA NITROGEN 12 MG/DL (7-18); CALCIUM LEVEL 9.5 MG/DL (8.8-10.2); CARBON DIOXIDE LEVEL 29 MEQ/L (21-32); CHLORIDE LEVEL 102 MEQ/L (98-107); CREATININE FOR GFR 0.98 MG/DL (0.70-1.30); GLOMERULAR FILTRATION RATE > 60.0 (>35); GLUCOSE, FASTING 90 MG/DL (70-100); SODIUM LEVEL 136 MEQ/L (136-145)
[2020-12-06] MEDS: sulfaSALAzine 500 MG TABEC PO SCH ×2 (08:24→20:24)
[2020-12-06] MEDS: SERTRALINE 100 MG TAB PO SCH (08:24)
[2020-12-06] MEDS: ASPIRIN 81MG ENTERIC TABLET PO SCH (08:24)
[2020-12-06] MEDS: PANTOPRAZOLE 40MG TAB (PROTONIX) PO SCH (08:25)
[2020-12-06] MEDS: ATORVASTATIN 20 MG TAB PO SCH (08:25)
--- NOTE | 2020-12-06 12:09 | IPNPDOC ---
Subjective Date Seen The patient was seen on 12/06/20. Subjective Chief Complaint/HPI No new complaints this morning. Still feels dizzy when he stands up. Orthostatic vitals are still positive. Objective Physical Examination General Exam: Positive: Alert, Cooperative, No Acute Distress Eye Exam: Positive: PERRLA, Conjunctiva & lids normal, EOMI; Negative: Sclera icteric ENT Exam: Positive: Atraumatic, Mucous membr. moist/pink, Pharynx Normal Neck Exam: Positive: Supple; Negative: JVD, thyromegaly Chest Exam: Positive: Clear to auscultation, Normal air movement Heart Exam: Positive: Rate Normal, Regular Rhythm, Normal S1, Normal S2; Negative: Murmurs, Rubs Telemetry: Positive: Other Telemetry: (bigemini rhythm, NSVTs) Abdomen Exam: Positive: Normal bowel sounds, Soft; Negative: Tenderness, Hepatospenomegaly Extremity Exam: Negative: Clubbing, Cyanosis, Edema Skin Exam: Positive: Nl turgor and temperature; Negative: Breakdown, Lesion Neuro Exam: Positive: Strength at 5/5 X4 ext, Normal Tone, Other (palilalia); Negative: Sensation Intact Psych Exam: Positive: Memory Intact, Oriented x 3 Assessment /Plan Assessment 80 year old male with HTN, HLD, Parkinson's disease, inflammatory bowel disease, hiatal hernia, presented to the hospital for weakness, dizziness and falls at home. Patient says that he came because of headache, stomach problem and weakness. In the ED he was noted to be in Bigemini rhythm with some NSVTs. Cardiac arrhythmias/ Bigeminis/ NSVT continues to have these asymptomatic. could be related to Sinemet newly started will stop it and monitor. Echo Cardiology consult. Orthostatic hypotension/ dizziness/ falls could be related to Parkinson's disease itself vs medication for Parkinson disease will stop HCTZ and lisinopril and monitor may need to start fludrocortisone if needed. Poor appetite could also be related to Sinemet. this was stopped. Weakness and falls he has positive orthostatic hypotension this could be due to due to Parkinson's disease itself or a side effect of medication have dced his bp meds. will monitor PT/OT HTN blood pressure well controlled with large orthostatic drop. stopped home meds. HLD patient has lost 10 kgs in the last 3 years likely due to Sarcopenia, age related decrease in appetite. Lipid panel well controlled. Will reduce statin. Plan/VTE VTE Prophylaxis Ordered?: Yes VS, I&O, 24H, Fishbone Vital Signs/I&O Vital Signs Date Time Temp Pulse Resp B/P (MAP) Pulse Ox O2 Delivery O2 Flow Rate FiO2 12/06/20 11:00 97.1 75 18 107/58 (74) 94 Room Air I&O- Last 24 Hours up to 6 AM 12/06/20 06:00 Intake Total 660 ml Output Total 650 ml Balance 10 ml Laboratory Data 24H LABS Laboratory Tests 2 12/06/20 05:22: Immature Granulocyte % (Auto) 0.3, Neutrophils (%) (Auto) 69.8H, Lymphocytes (%) (Auto) 16.3L, Monocytes (%) (Auto) 12.0H, Eosinophils (%) (Auto) 1.0, Basophils (%) (Auto) 0.6, Neutrophils # (Auto) 4.8, Lymphocytes # (Auto) 1.1L, Monocytes # (Auto) 0.8, Eosinophils # (Auto) 0.1, Basophils # (Auto) 0.0, Nucleated Red Blood Cells % (auto) 0.0, Anion Gap 5L, Glomerular Filtration Rate > 60.0, Calcium Level 9.5 CBC/BMP Laboratory Tests 12/06/20 05:22 SALTY VALIENTE MD Dec 06, 2020 12:09
[2020-12-06] MEDS: LORazepam 0.5 MG TAB PO SCH (20:24)
[2020-12-06] MEDS: ENOXAPARIN 40MG/0.4ML SYRINGE (J1650 PER 10MG) SC SCH (20:24)
[2020-12-07] VITALS (7 sets, daily range): BP systolic 83–138; BP diastolic 50–70
[2020-12-07 06:05] LABS: BASO # 0.1 10^3/uL (0.0-0.2); BASO % 0.9 % (0.0-1.0); EOS # 0.1 10^3/uL (0.0-0.5); HEMATOCRIT 42.1 % (42.0-52.0); HEMOGLOBIN 13.7 g/dl (13.5-17.5); LYMPH # 0.9 10^3/uL (1.5-5.0); LYMPH % 16.1 % (24.0-44.0); MEAN CORPUSCULAR HEMOGLOBIN 29.4 pg (27.0-33.0); MEAN CORPUSCULAR HGB CONC 32.5 g/dl (32.0-36.5); MEAN CORPUSCULAR VOLUME 90.3 fl (80.0-96.0); MONO # 0.7 10^3/uL (0.0-0.8); MONO % 12.2 % (2.0-8.0); NEUTROPHILS % 69.5 % (36.0-66.0); PLATELET COUNT, AUTOMATED 202 10^3/uL (150-450); RED BLOOD COUNT 4.66 10^6/uL (4.30-6.10); WHITE BLOOD COUNT 5.8 10^3/uL (4.0-10.0)
[2020-12-07 06:27] LABS: BLOOD UREA NITROGEN 11 MG/DL (7-18); CALCIUM LEVEL 9.2 MG/DL (8.8-10.2); CARBON DIOXIDE LEVEL 31 MEQ/L (21-32); CHLORIDE LEVEL 103 MEQ/L (98-107); CREATININE FOR GFR 0.86 MG/DL (0.70-1.30); GLOMERULAR FILTRATION RATE > 60.0 (>35); GLUCOSE, FASTING 90 MG/DL (70-100); POTASSIUM SERUM 4.1 MEQ/L (3.5-5.1); SODIUM LEVEL 138 MEQ/L (136-145)
[2020-12-07] MEDS: SLF 3 ML SYR IV SCH ×3 (06:36→21:43)
--- NOTE | 2020-12-07 08:27 | CR ---
CONSULTATION DATE: 12/07/2020 REFERRING PHYSICIAN: Alethea Munoz M.D. REASON FOR CONSULTATION: PVCs, nonsustained ventricular tachycardia, orthostatic hypotension. HISTORY OF PRESENT ILLNESS: Mr. Toledo is previously unknown to me. He is an 80-year-old man who was recently diagnosed with Parkinson's disease and was started on Sinemet. He presented to this facility because of weakness and frequent falls and was found to have significantly positive orthostatic vital signs and also was found to have frequent ventricular ectopy on telemetry that included principally PVCs in bigeminal pattern. Initially, Dr. Munoz discontinued his antihypertensive medications. It did not seem to make much difference in the ventricular ectopy and I do not see any orthostatic vital signs today but the patient reported that he continues to feel dizzy. At bedside, unfortunately I was able to obtain only very limited history from the patient. He is extremely hard of hearing and his hearing aids were totally depleted and consequently the communication was very challenging, but nevertheless, his dominant concern today is about going home. He is repeatedly asking me to let him go home. He denies any chest pain. He denies any palpitations. He denies any history of coronary artery disease or congestive heart failure. He does recall that at home he was very weak and he was frequently feeling dizzy but denies any syncopal event. Unfortunately, I was not able to elicit anymore details than that. PAST MEDICAL HISTORY: 1. Hypertension. 2. Parkinson's disease. 3. Dyslipidemia. 4. Inflammatory bowel disease. 5. History of prostate cancer. 6. Hiatal hernia. 7. Hemorrhoids. PAST SURGICAL HISTORY: 1. Hernia repair. 2. Right rotator cuff repair. FAMILY HISTORY: Both parents of cancer. SOCIAL HISTORY: He is an ex-smoker, he is and lives with his . REVIEW OF SYSTEMS: Very limited due to his hearing impairment. He denies any chest pain or palpitations. He denies any true syncopal events. He denies peripheral edema. He denies nausea, vomiting or diarrhea. Based on admission note, there has been considerable weight gain over the last several years. The rest is negative or unobtainable. PHYSICAL EXAMINATION: VITAL SIGNS: This morning blood pressure was recorded as 108/57, heart rate has been in the 70s and 80s. Saturation is 95% on room air. His weight was recorded at 53.9 kg yesterday. His BMI is calculated as 22. The review of telemetry reveals consistently sinus rhythm with very frequent ventricular ectopy including multiple runs of nonsustained ventricular tachycardia. Typically triplets but occasionally four or five interval. The morphology of PVCs is suggestive of RVOT origin. GENERAL APPEARANCE: Mr. Toledo is a frail elderly man, again somewhat difficult to obtain history from due to incredible difficulty hearing. NECK: His JVP is not high. LUNGS: Clear. Good air movement. HEART: Regular rhythm with ectopy. I do not appreciate any distinct gallop or rub. There is only a faint murmur at the base. ABDOMEN: Soft, nontender. No masses. EXTREMITIES: Free of edema. Peripheral pulses are palpable. NEUROLOGIC: He appears oriented. He moves all four extremities. There is an apparent tremor and he appears very frail. It is my understanding that it is difficult for him to walk without assistance. LABORATORY DATA: CBC is normal. Basic metabolic panel is normal as well. His admission albumin was 3.9, lipid panel reveals total cholesterol of 167, LDL 84, HDL 50 and triglycerides 163. TSH was 0.6. ECG on admission reveals an essentially normal EKG with the exception of bigeminal PVCs. Again, most likely of RVOT origin. An echocardiogram yesterday that I interpreted reveals preserved left ventricular systolic function and no hemodynamically significant valvular disease. ASSESSMENT AND PLAN: 1. Mr. Samson is an elderly frail gentleman who was recently diagnosed with Parkinson's disease. He came because of symptoms of orthostatic hypotension and weakness. It is likely that his symptoms are stemming from is neurodegenerative disorder and orthostatic hypotension is a frequent complication. I do agree with discontinuation of antihypertensive medications, especially considering the fact that his blood pressure remains controlled. At this point, I would suggest to use medications to support his blood pressure, typically Midodrine and fludrocortisone are the drugs of choice. Even though the Midodrine is more established, unfortunately with his frequent ventricular ectopy I am somewhat concerned about its use. Consequently, use of fludrocortisone would be my first choice. If it is not effective, then Midodrine can be utilized but I would recommend to start it in the hospital when he is constantly monitored to make sure it does not aggravate his ventricular ectopy. 2. Frequent PVCs including runs of nonsustained ventricular tachycardia, so far they have been asymptomatic. The etiology is unclear. Most PVCs of RVOT origin are not ischemic in nature but in his age group I certainly cannot rule that out. The typical drug of choice are beta blockers but with his relative hypotension, this choice is problematic. He should have an evaluation for underlying ischemic heart disease on an outpatient basis. At this point, I would focus on management of orthostatic hypotension. I will recommend it when he gets home, will give him some form of longer monitor to make sure he does not have longer runs of ventricular tachycardia. In the truly longer horizon, I am not convinced that thorough evaluation is a benefit, it looks like his neurologic decline has been relatively precipitous and I cannot imagine that he would go through some heroic cardiac procedures especially when talking open heart surgery. Nevertheless, we can discuss these issues on an outpatient basis with his family.
[2020-12-07] MEDS ORDERED: MIRALAX *UNIT DOSE* 17GM PACKET PO PRN (09:00)
--- NOTE | 2020-12-07 09:39 | ECHO ---
DATE OF PROCEDURE: 12/06/2020 Age: 80 Gender: Male Height: 165 cm Weight: 54 kg REFERRING PHYSICIAN: Dr. Alethea Munoz, INDICATION: Abnormal EKG. MEASUREMENTS: IVS 1.0 cm LV 4.7 cm LVPW 0.8 cm LA 3.6 cm Aorta 3.7 cm RV 4.2 cm Mitral E wave velocity 58 A wave 84 E prime septal 5.9 E prime lateral 7.9 FINDINGS: This study is of fair technical quality. Patient is in sinus rhythm with frequent ectopy. Left ventricle is normal size and systolic function with estimated LVEF 65 to 70%. Right ventricle is markedly dilated and hypokinetic. Left atrium is normal size. Right atrium is enlarged. Aortic valve is mildly sclerotic but has three cusps and preserved mobility. Mitral, tricuspid, and pulmonic valves appear normal. No pericardial effusion is noted. Inferior vena cava is of normal size and appropriately collapses with inspiration. Aortic root is normal. Aortic arch and abdominal aorta were not well seen. Doppler interrogation reveals no aortic stenosis and mild insufficiency. There is trace mitral insufficiency and mild tricuspid insufficiency. Calculated pulmonary artery pressure is in the 30s corresponding to mild pulmonary hypertension. Mitral inflow pattern and tissue Doppler imaging of mitral annulus revealed grade 1 diastolic dysfunction. CONCLUSIONS: 1. Study is of fair technical quality, underlying sinus rhythm with ventricular ectopy. 2. Normal LV size with preserved LV systolic function and grade 1 diastolic dysfunction. 3. Dilated hypokinetic right ventricle. 4. Aortic sclerosis with no stenosis and mild insufficiency. 5. Mild tricuspid insufficiency. 6. Likely normal central venous pressure but at least mild pulmonary hypertension. MTDD
[2020-12-07] MEDS: SERTRALINE 100 MG TAB PO SCH (09:44)
[2020-12-07] MEDS: PANTOPRAZOLE 40MG TAB (PROTONIX) PO SCH (09:44)
[2020-12-07] MEDS: ASPIRIN 81MG ENTERIC TABLET PO SCH (09:44)
[2020-12-07] MEDS: ATORVASTATIN 20 MG TAB PO SCH (09:44)
[2020-12-07] MEDS: sulfaSALAzine 500 MG TABEC PO SCH ×2 (09:44→21:36)
--- NOTE | 2020-12-07 11:09 | IPNPDOC ---
Subjective Date Seen The patient was seen on 12/07/20. Subjective Chief Complaint/HPI No complaints this morning. Says does not feel dizzy any more. eating a little better. Objective Physical Examination General Exam: Positive: Alert, Cooperative, No Acute Distress Eye Exam: Positive: PERRLA, Conjunctiva & lids normal, EOMI; Negative: Sclera icteric ENT Exam: Positive: Atraumatic, Mucous membr. moist/pink, Pharynx Normal Neck Exam: Positive: Supple; Negative: JVD, thyromegaly Chest Exam: Positive: Clear to auscultation, Normal air movement Heart Exam: Positive: Rate Normal, Regular Rhythm, Normal S1, Normal S2; Negative: Murmurs, Rubs Telemetry: Positive: Other Telemetry: (bigemini rhythm, NSVTs) Abdomen Exam: Positive: Normal bowel sounds, Soft; Negative: Tenderness, Hepatospenomegaly Extremity Exam: Negative: Clubbing, Cyanosis, Edema Skin Exam: Positive: Nl turgor and temperature; Negative: Breakdown, Lesion Neuro Exam: Positive: Strength at 5/5 X4 ext, Normal Tone, Other (palilalia); Negative: Sensation Intact Psych Exam: Positive: Memory Intact, Oriented x 3 Assessment /Plan Assessment 80 year old male with HTN, HLD, Parkinson's disease, inflammatory bowel disease, hiatal hernia, presented to the hospital for weakness, dizziness and falls at home. Patient says that he came because of headache, stomach problem and weakness. In the ED he was noted to be in Bigemini rhythm with some NSVTs. Cardiac arrhythmias/ Bigeminis/ NSVT Seems to be much less at present. Echo : 1. Study is of fair technical quality, underlying sinus rhythm with ventricle ectopy. 2. Normal LV size with preserved LV systolic function and grade 1 diastolic dysfunction. 3. Dilated hypokinetic right ventricle. 4. Aortic sclerosis with no stenosis and mild insufficiency. 5. Mild tricuspid insufficiency. 6. Likely normal central venous pressure but at least mild pulmonary hypertension. could be related to Sinemet newly started. It has been stopped. Cardiology consult appreciated. Orthostatic hypotension/ dizziness/ falls Liely related to Parkinson's disease will stop HCTZ and lisinopril will start fludrocortisone Poor appetite could also be related to Sinemet. this was stopped. Weakness and falls due to orthostatic hypotension this could be due to due to Parkinson's disease itself or a side effect of medication have dced his bp meds. will monitor PT/OT HTN blood pressure well controlled with large orthostatic drop. stopped home meds. HLD patient has lost 10 kgs in the last 3 years likely due to Sarcopenia, age related decrease in appetite. Lipid panel well controlled. Will reduce statin. Dispo: Continued rehab after DC. Plan/VTE VTE Prophylaxis Ordered?: Yes VS, I&O, 24H, Fishbone Vital Signs/I&O Vital Signs Date Time Temp Pulse Resp B/P (MAP) Pulse Ox O2 Delivery O2 Flow Rate FiO2 12/07/20 08:00 98.6 79 18 132/64 (86) 96 Room Air I&O- Last 24 Hours up to 6 AM 12/07/20 06:00 Intake Total 900 ml Output Total 725 ml Balance 175 ml Laboratory Data 24H LABS Laboratory Tests 2 12/07/20 05:38: Immature Granulocyte % (Auto) 0.3, Neutrophils (%) (Auto) 69.5H, Lymphocytes (%) (Auto) 16.1L, Monocytes (%) (Auto) 12.2H, Eosinophils (%) (Auto) 1.0, Basophils (%) (Auto) 0.9, Neutrophils # (Auto) 4.0, Lymphocytes # (Auto) 0.9L, Monocytes # (Auto) 0.7, Eosinophils # (Auto) 0.1, Basophils # (Auto) 0.1, Nucleated Red Blood Cells % (auto) 0.0, Anion Gap 4L, Glomerular Filtration Rate > 60.0, Calcium Level 9.2 CBC/BMP Laboratory Tests 12/07/20 05:38 SALTY VALIENTE MD Dec 07, 2020 11:09
[2020-12-07] MEDS: FLUDROCORTISONE ACETATE 0.1 MG TAB PO SCH (12:49)
[2020-12-07] MEDS ORDERED: SINEMET 25-100 MG TAB PO ONE (13:30)
[2020-12-07] MEDS: SINEMET 12.5MG/50MG PER 1/2 TABLET PO SCH (18:12)
[2020-12-07] MEDS: LORazepam 0.5 MG TAB PO SCH (21:36)
[2020-12-07] MEDS: ENOXAPARIN 40MG/0.4ML SYRINGE (J1650 PER 10MG) SC SCH (21:40)
[2020-12-08] VITALS: BP 138/73
[2020-12-08 04:00] VITALS: BP 132/69
[2020-12-08 05:50] VITALS: BP_SYST 114; BP_SYST 89; BP_SYST 90; BP_DIAS 54; BP_DIAS 55; BP_DIAS 57
[2020-12-08] MEDS: SLF 3 ML SYR IV SCH ×3 (05:55→20:14)
[2020-12-08 06:11] LABS: BASO % 0.7 % (0.0-1.0); EOS # 0.1 10^3/uL (0.0-0.5); HEMATOCRIT 39.7 % (42.0-52.0); HEMOGLOBIN 13.3 g/dl (13.5-17.5); LYMPH % 15.4 % (24.0-44.0); MEAN CORPUSCULAR HEMOGLOBIN 29.6 pg (27.0-33.0); MEAN CORPUSCULAR HGB CONC 33.5 g/dl (32.0-36.5); MEAN CORPUSCULAR VOLUME 88.4 fl (80.0-96.0); MONO # 0.8 10^3/uL (0.0-0.8); MONO % 12.7 % (2.0-8.0); NEUTROPHILS # 4.3 10^3/uL (1.5-8.5); NEUTROPHILS % 69.9 % (36.0-66.0); PLATELET COUNT, AUTOMATED 193 10^3/uL (150-450); RED BLOOD COUNT 4.49 10^6/uL (4.30-6.10); WHITE BLOOD COUNT 6.2 10^3/uL (4.0-10.0)
[2020-12-08 06:31] LABS: BLOOD UREA NITROGEN 11 MG/DL (7-18); CALCIUM LEVEL 9.1 MG/DL (8.8-10.2); CARBON DIOXIDE LEVEL 28 MEQ/L (21-32); CHLORIDE LEVEL 103 MEQ/L (98-107); CREATININE FOR GFR 0.73 MG/DL (0.70-1.30); GLOMERULAR FILTRATION RATE > 60.0 (>35); GLUCOSE, FASTING 85 MG/DL (70-100); POTASSIUM SERUM 3.8 MEQ/L (3.5-5.1); SODIUM LEVEL 137 MEQ/L (136-145)
[2020-12-08] MEDS: SINEMET 12.5MG/50MG PER 1/2 TABLET PO SCH ×3 (07:24→18:02)
[2020-12-08 08:00] VITALS: BP 112/69
[2020-12-08] MEDS: ASPIRIN 81MG ENTERIC TABLET PO SCH (08:43)
[2020-12-08] MEDS: ATORVASTATIN 20 MG TAB PO SCH (08:43)
[2020-12-08] MEDS: FLUDROCORTISONE ACETATE 0.1 MG TAB PO SCH (08:44)
[2020-12-08] MEDS: sulfaSALAzine 500 MG TABEC PO SCH ×2 (08:44→20:11)
[2020-12-08] MEDS: PANTOPRAZOLE 40MG TAB (PROTONIX) PO SCH (08:44)
[2020-12-08] MEDS: SERTRALINE 100 MG TAB PO SCH (08:44)
--- NOTE | 2020-12-08 09:26 | IPNPDOC ---
Subjective Date Seen The patient was seen on 12/08/20. Subjective Chief Complaint/HPI Denies any dizziness this morning. His orthostats remain positive. No fever or chills, restarted on sinemet. On tele has short 3 to 4 beats NSVTs no bigeminis. Objective Physical Examination General Exam: Positive: Alert, Cooperative, No Acute Distress Eye Exam: Positive: PERRLA, Conjunctiva & lids normal, EOMI; Negative: Sclera icteric ENT Exam: Positive: Atraumatic, Mucous membr. moist/pink, Pharynx Normal Neck Exam: Positive: Supple; Negative: JVD, thyromegaly Chest Exam: Positive: Clear to auscultation, Normal air movement Heart Exam: Positive: Rate Normal, Regular Rhythm, Normal S1, Normal S2; Negative: Murmurs, Rubs Telemetry: Positive: Other Telemetry: (bigemini rhythm, NSVTs) Abdomen Exam: Positive: Normal bowel sounds, Soft; Negative: Tenderness, Hepatospenomegaly Extremity Exam: Negative: Clubbing, Cyanosis, Edema Skin Exam: Positive: Nl turgor and temperature; Negative: Breakdown, Lesion Neuro Exam: Positive: Strength at 5/5 X4 ext, Normal Tone, Other (palilalia); Negative: Sensation Intact Psych Exam: Positive: Oriented x 3 Assessment /Plan Assessment 80 year old male with HTN, HLD, Parkinson's disease, inflammatory bowel disease, hiatal hernia, presented to the hospital for weakness, dizziness and falls at home. Patient says that he came because of headache, stomach problem and weakness. In the ED he was noted to be in Bigemini rhythm with some NSVTs. Cardiac arrhythmias/ Bigeminis/ NSVT Seems to be much less at present. Echo : 1. Study is of fair technical quality, underlying sinus rhythm with ventricle ectopy. 2. Normal LV size with preserved LV systolic function and grade 1 diastolic dysfunction. 3. Dilated hypokinetic right ventricle. 4. Aortic sclerosis with no stenosis and mild insufficiency. 5. Mild tricuspid insufficiency. 6. Likely normal central venous pressure but at least mild pulmonary hypertension. Cardiology consult appreciated. will need to follow with cardiology as outpatient. Sinemet can be restarted. Orthostatic hypotension/ dizziness/ falls Likely related to Parkinson's disease worsened by antihypertensives. stopped HCTZ and lisinopril started fludrocortisone He is no longer dizzy from the orthostatic hypotension however continues to be very weak with difficulties in ambulation due to his parkinson's disease His orthostatic vitals also remain positive. We have just started on fludrocortisone so will need to monitor how this is working. If this is not enough may need to add midodrine with close monitoring as per cardiology. Patient has complications that will need close monitoring that can be best provided on acute inpatient rehab. I feel he would benefit from 3 hours of intensive therapy and can tolerate it. Weakness and falls due to orthostatic hypotension and hypotension from his antihypertensive meds. have dced his bp meds. Continue with PT/OT HTN seems to have resolved. blood pressure in hospital well controlled with large orthostatic drop. stopped home meds. HLD patient has lost 10 kgs in the last 3 years likely due to Sarcopenia, age related decrease in appetite. Lipid panel well controlled. reduced statin. Dispo: Continued rehab after DC. Plan/VTE VTE Prophylaxis Ordered?: Yes VS, I&O, 24H, Fishbone Vital Signs/I&O Vital Signs Date Time Temp Pulse Resp B/P (MAP) Pulse Ox O2 Delivery O2 Flow Rate FiO2 12/08/20 08:00 97.7 80 18 112/69 (83) 95 12/08/20 04:00 Room Air I&O- Last 24 Hours up to 6 AM 12/08/20 06:00 Intake Total 100 ml Output Total 560 ml Balance -460 ml Laboratory Data 24H LABS Laboratory Tests 2 12/08/20 05:25: Immature Granulocyte % (Auto) 0.3, Neutrophils (%) (Auto) 69.9H, Lymphocytes (%) (Auto) 15.4L, Monocytes (%) (Auto) 12.7H, Eosinophils (%) (Auto) 1.0, Basophils (%) (Auto) 0.7, Neutrophils # (Auto) 4.3, Lymphocytes # (Auto) 1.0L, Monocytes # (Auto) 0.8, Eosinophils # (Auto) 0.1, Basophils # (Auto) 0.0, Nucleated Red Blood Cells % (auto) 0.0, Anion Gap 6L, Glomerular Filtration Rate > 60.0, Calcium Level 9.1 CBC/BMP Laboratory Tests 12/08/20 05:25 SALTY VALIENTE MD Dec 08, 2020 09:26
[2020-12-08 12:00] VITALS: BP_SYST 102; BP_SYST 114; BP_SYST 123; BP_SYST 134; BP_DIAS 55; BP_DIAS 57; BP_DIAS 59; BP_DIAS 69
[2020-12-08 20:00] VITALS: BP_SYST 101; BP_SYST 90; BP_SYST 98; BP_DIAS 52; BP_DIAS 57; BP_DIAS 58
[2020-12-08] MEDS: LORazepam 0.5 MG TAB PO SCH (20:11)
[2020-12-08] MEDS: ENOXAPARIN 40MG/0.4ML SYRINGE (J1650 PER 10MG) SC SCH (20:12)
[2020-12-09 04:00] VITALS: BP_SYST 101; BP_SYST 143; BP_SYST 98; BP_DIAS 56; BP_DIAS 57; BP_DIAS 70
[2020-12-09 05:41] LABS: BASO % 0.5 % (0.0-1.0); EOS # 0.1 10^3/uL (0.0-0.5); EOS % 1.3 % (0.0-3.0); HEMOGLOBIN 13.2 g/dl (13.5-17.5); MEAN CORPUSCULAR HEMOGLOBIN 29.6 pg (27.0-33.0); MEAN CORPUSCULAR VOLUME 89.7 fl (80.0-96.0); MONO # 0.7 10^3/uL (0.0-0.8); MONO % 11.3 % (2.0-8.0); NEUTROPHILS # 4.3 10^3/uL (1.5-8.5); NEUTROPHILS % 70.7 % (36.0-66.0); PLATELET COUNT, AUTOMATED 181 10^3/uL (150-450); RED BLOOD COUNT 4.46 10^6/uL (4.30-6.10); WHITE BLOOD COUNT 6.1 10^3/uL (4.0-10.0)
[2020-12-09] MEDS: SLF 3 ML SYR IV SCH ×2 (06:00→14:00)
[2020-12-09 06:12] LABS: BLOOD UREA NITROGEN 15 MG/DL (7-18); CALCIUM LEVEL 9.2 MG/DL (8.8-10.2); CARBON DIOXIDE LEVEL 27 MEQ/L (21-32); CHLORIDE LEVEL 105 MEQ/L (98-107); CREATININE FOR GFR 0.73 MG/DL (0.70-1.30); GLOMERULAR FILTRATION RATE > 60.0 (>35); GLUCOSE, FASTING 84 MG/DL (70-100); POTASSIUM SERUM 3.9 MEQ/L (3.5-5.1); SODIUM LEVEL 138 MEQ/L (136-145)
[2020-12-09] MEDS: SINEMET 12.5MG/50MG PER 1/2 TABLET PO SCH (06:40)
[2020-12-09 08:00] VITALS: BP 119/56
[2020-12-09] MEDS ORDERED: FLUD0.1T PO ×2 (08:00→13:55)
[2020-12-09] MEDS ORDERED: ATOR40TA75 PO (08:00)
--- NOTE | 2020-12-09 08:07 | DS.PDOC ---
Discharge Summary General Date of Admission Dec 04, 2020 at 16:09 Date of Discharge 12/09/20 Discharge Summary PROCEDURES PERFORMED DURING STAY: [None]. DISCHARGE DIAGNOSES: Orthostatic hypotension and falls Bigeminis, PVCs, NSVTs asymptomatic. Parkinson's disease H/O hypertension nor resolved HLD Inflammatory bowel disease, hiatal hernia, COMPLICATIONS/CHIEF COMPLAINT: Cardiac Arrhythmia Recurrenct Falls. HOSPITAL COURSE: 80 year old male with HTN, HLD, Parkinson's disease, inflammatory bowel disease, hiatal hernia, presented to the hospital for weakness, dizziness and falls at home. Patient says that he came because of headache, stomach problem and weakness. In the ED he was noted to be in Bigemini rhythm with some NSVTs. Cardiac arrhythmias/ Bigeminis/ NSVT Seems to be much less at present. Echo : 1. Study is of fair technical quality, underlying sinus rhythm with ventricle ectopy. 2. Normal LV size with preserved LV systolic function and grade 1 diastolic dysfunction. 3. Dilated hypokinetic right ventricle. 4. Aortic sclerosis with no stenosis and mild insufficiency. 5. Mild tricuspid insufficiency. 6. Likely normal central venous pressure but at least mild pulmonary h ypertension. Cardiology consult appreciated. Etiology unclear , usually not related to ischemia but in his age group it cannot be ruled out. Needs work up for cardiac ischemia as outpatient. will need to follow with cardiology as outpatient. Sinemet restarted. Orthostatic hypotension/ dizziness/ falls Likely related to Parkinson's disease worsened by antihypertensives. stopped HCTZ and lisinopril started fludrocortisone He is no longer dizzy from the orthostatic hypotension however continues to be very weak with difficulties in ambulation due to his parkinson's disease His orthostatic vitals also remain positive. We have just started on fludrocortisone so will need to monitor how this is working. If this is not enough may need to add midodrine with close monitoring as per cardiology. Patient has complications that will need close monitoring that can be best provided on acute inpatient rehab. I feel he would benefit from 3 hours of intensive therapy and can tolerate it. Weakness and falls due to orthostatic hypotension and hypotension from his antihypertensive meds. have dced his bp meds. Continue with PT/OT HTN seems to have resolved. blood pressure in hospital well controlled with large orthostatic drop. stopped home meds. HLD patient has lost 10 kgs in the last 3 years likely due to Sarcopenia, age related decrease in appetite. Lipid panel well controlled. reduced statin. DISCHARGE MEDICATIONS: Please see below. ALLERGIES: Please see below. PHYSICAL EXAMINATION ON DISCHARGE: VITAL SIGNS: Please see below. General Exam: Positive: Alert, Cooperative, No Acute Distress Eye Exam: Positive: PERRLA, Conjunctiva & lids normal, EOMI; Negative: Sclera icteric ENT Exam: Positive: Atraumatic, Mucous membr. moist/pink, Pharynx Normal Neck Exam: Positive: Supple; Negative: JVD, thyromegaly Chest Exam: Positive: Clear to auscultation, Normal air movement Heart Exam: Positive: Rate Normal, Regular Rhythm, Normal S1, Normal S2; Negative: Murmurs, Rubs Telemetry: Positive: Other Telemetry: (bigemini rhythm, NSVTs) Abdomen Exam: Positive: Normal bowel sounds, Soft; Negative: Tenderness, Hepatospenomegaly Extremity Exam: Negative: Clubbing, Cyanosis, Edema Skin Exam: Positive: Nl turgor and temperature; Negative: Breakdown, Lesion Neuro Exam: Positive: Strength at 5/5 X4 ext, Normal Tone, Other (palilalia); Negative: Sensation Intact Psych Exam: Positive: Oriented x 3 LABORATORY DATA: Please see below. ACTIVITY: [As tolerated]. DIET: mechanical soft DISCHARGE PLAN: [facility] DISCHARGE INSTRUCTIONS: Follow up with Dr Marquis in 1-2 weeks Neurology in 2 to 3 weeks DISCHARGE CONDITION: [Stable]. TIME SPENT ON DISCHARGE: 35 minutes. Vital Signs/I&Os Vital Signs Date Time Temp Pulse Resp B/P (MAP) Pulse Ox O2 Delivery O2 Flow Rate FiO2 12/09/20 04:00 75 143/70 (94) 81 101/57 (72) 93 98/56 (70) 12/09/20 04:00 97.5 18 97 Room Air I&O- Last 24 Hours up to 6 AM 12/09/20 06:00 Intake Total 1080 ml Output Total 600 ml Balance 480 ml Laboratory Data Labs 24H Laboratory Tests 2 12/09/20 05:31: Immature Granulocyte % (Auto) 0.2, Neutrophils (%) (Auto) 70.7H, Lymphocytes (%) (Auto) 16.0L, Monocytes (%) (Auto) 11.3H, Eosinophils (%) (Auto) 1.3, Basophils (%) (Auto) 0.5, Neutrophils # (Auto) 4.3, Lymphocytes # (Auto) 1.0L, Monocytes # (Auto) 0.7, Eosinophils # (Auto) 0.1, Basophils # (Auto) 0.0, Nucleated Red Blood Cells % (auto) 0.0, Anion Gap 6L, Glomerular Filtration Rate > 60.0, Calcium Level 9.2 CBC/BMP Laboratory Tests 12/09/20 05:31 Discharge Medications Scheduled Aspirin (Aspirin EC) 81 Mg Tablet.dr, 81 MG PO DAILY, (Reported) Atorvastatin Calcium (Atorvastatin Calcium) 40 Mg Tab, 20 MG PO DAILY Carbidopa/Levodopa (Carbidopa-Levodopa 25-100 Tab) 1 Each Tablet, 0.5 TAB PO TID, (Reported) 0700, LUNCH, 1900 Cholecalciferol (Vitamin D3) (Vitamin D3) 1,000 Unit Tablet, 1,000 UNITS PO DAILY, (Reported) Fludrocortisone Acetate (Fludrocortisone Acetate) 0.1 Mg Tablet, 0.1 MG PO DAILY Multivitamin (Multivitamins) 1 Each Tablet, 1 TAB PO DAILY, (Reported) Pantoprazole Sodium (Pantoprazole Sodium) 40 Mg Tablet.dr, 40 MG PO DAILY, (Reported) Sertraline Hcl (Zoloft) 100 Mg Tablet, 100 MG PO DAILY, (Reported) Sulfasalazine (Sulfasalazine) 500 Mg Tablet, 500 MG PO TID, (Reported) Scheduled PRN Lorazepam (Ativan) 0.5 Mg Tablet, 0.5 MG PO BID PRN for ANXIETY/AGITATION, (Reported) Allergies Coded Allergies: No Known Drug Allergies (Verified Allergy, Unknown, 09/23/20) codeine (Verified Adverse Reaction, Mild, 09/23/20) vomit meperidine (Verified Adverse Reaction, Mild, 09/23/20) vomit morphine (Verified Adverse Reaction, Mild, 09/23/20) vomit nalbuphine (Verified Adverse Reaction, Mild, 09/23/20) vomit SALTY VALIENTE MD Dec 09, 2020 08:07
[2020-12-09] MEDS ORDERED: MIRALAX *UNIT DOSE* 17GM PACKET PO SCH (09:00)
[2020-12-09] MEDS ORDERED: METAMUCIL (PSYLLIUM) PACKET PO SCH (09:00)
[2020-12-09] MEDS: sulfaSALAzine 500 MG TABEC PO SCH (09:34)
[2020-12-09] MEDS: FLUDROCORTISONE ACETATE 0.1 MG TAB PO SCH (09:34)
[2020-12-09] MEDS: ASPIRIN 81MG ENTERIC TABLET PO SCH (09:34)
[2020-12-09] MEDS: PANTOPRAZOLE 40MG TAB (PROTONIX) PO SCH (09:37)
[2020-12-09] MEDS: ATORVASTATIN 20 MG TAB PO SCH (09:37)
[2020-12-09] MEDS: SERTRALINE 100 MG TAB PO SCH (09:37)
[2020-12-09] MEDS ORDERED: PILL CUTTER 1 EACH XX PRN (10:55)
[2020-12-09 12:00] VITALS: BP 123/65
[2020-12-09] MEDS ORDERED: SINEMET 25-100 MG TAB PO SCH (12:00)
== END 2020-12-09 16:04 | disposition home health service (06) | DRG 312 ==
LOC: M ED 13:06 → M ED INP 16:09 → ENRESERV 16:36 → M PCU 18:47
PROVIDERS: ADMIT Internal Medicine Nephrology; ATTEND Internal Medicine Nephrology
DX: I95.1 Orthostatic hypotension (principal); I47.2 Ventricular tachycardia; G20 Parkinson's disease; T46.4X5A Adverse effect of angiotensin-converting-enzyme inhibitors, initial encounter; E78.5 Hyperlipidemia, unspecified; I10 Essential (primary) hypertension; K44.9 Diaphragmatic hernia without obstruction or gangrene; K64.8 Other hemorrhoids; K52.3 Indeterminate colitis; R42 Dizziness and giddiness; R29.6 Repeated falls; R53.1 Weakness; R63.0 Anorexia; M62.84 Sarcopenia; H91.93 Unspecified hearing loss, bilateral; Z87.891 Personal history of nicotine dependence; Z85.46 Personal history of malignant neoplasm of prostate; Z79.82 Long term (current) use of aspirin; Z79.899 Other long term (current) drug therapy; Z88.5 Allergy status to narcotic agent; Z88.8 Allergy status to other drugs, medicaments and biological substances

== ENCOUNTER → 2021-08-15 | Outpatient (CLI) | payer MEDICARE ==
[~2021-08-15] MED LIST changes: +ASPI81CH33 PO; +ASPI81TA26 PO; +ATIV1TAB10 PO; +CARB25TA9 PO; +D31000TA2 PO; +FLUD0.1T PO; +MULT1TAB74 PO; +NOXI1TAB PO; +PANT40TA29 PO; +SULF500T2 PO; +ZOLO100T PO
[2021-08-15 11:45] LABS: BLOOD UREA NITROGEN 21 MG/DL (7-18); CALCIUM LEVEL 9.6 MG/DL (8.8-10.2); CARBON DIOXIDE LEVEL 26 MEQ/L (21-32); CHLORIDE LEVEL 109 MEQ/L (98-107); CREATININE FOR GFR 1.16 MG/DL (0.70-1.30); GLOMERULAR FILTRATION RATE > 60.0 (>35); GLUCOSE, FASTING 114 MG/DL (70-100); SODIUM LEVEL 143 MEQ/L (136-145)
== END ==
LOC: M WUC 10:09
PROVIDERS: ATTEND Family Medicine
DX: R91.1 Solitary pulmonary nodule (principal)

== ENCOUNTER → 2021-08-21 | Outpatient (CLI) | payer MEDICARE ==
[~2021-08-21] MED LIST changes: +ISOVUE-370 76% 100ML VIAL ONE; -LISI20TA20 PO; +LISI20TA37 PO
== END ==
LOC: M PLAIMG 10:25
PROVIDERS: ATTEND Family Medicine
DX: R91.1 Solitary pulmonary nodule (principal)
CPT/HCPCS: 71260; Q9967

== ENCOUNTER → 2021-12-13 | Outpatient (CLI) | payer MEDICARE ==
[~2021-12-13] MED LIST changes: -D31000TA2 PO; -ISOVUE-370 76% 100ML VIAL ONE; +VITA100093 PO
[2021-12-13 15:47] LABS: BASO % 0.4 % (0.0-1.0); EOS # 0.1 10^3/uL (0.0-0.5); EOS % 1.7 % (0.0-3.0); HEMATOCRIT 48.1 % (42.0-52.0); HEMOGLOBIN 15.9 g/dl (13.5-17.5); LYMPH # 1.2 10^3/uL (1.5-5.0); MEAN CORPUSCULAR HEMOGLOBIN 30.5 pg (27.0-33.0); MEAN CORPUSCULAR HGB CONC 33.1 g/dl (32.0-36.5); MEAN CORPUSCULAR VOLUME 92.3 fl (80.0-96.0); MONO # 0.7 10^3/uL (0.0-0.8); MONO % 9.6 % (2.0-8.0); NEUTROPHILS # 5.2 10^3/uL (1.5-8.5); NEUTROPHILS % 72.2 % (36.0-66.0); PLATELET COUNT, AUTOMATED 206 10^3/uL (150-450); RED BLOOD COUNT 5.21 10^6/uL (4.30-6.10); WHITE BLOOD COUNT 7.2 10^3/uL (4.0-10.0)
[2021-12-13 16:01] LABS: ALBUMIN 4.4 GM/DL (3.2-5.2); ALT/SGPT 7 U/L (12-78); BILIRUBIN,TOTAL 0.5 MG/DL (0.2-1.0); BLOOD UREA NITROGEN 17 MG/DL (7-18); CARBON DIOXIDE LEVEL 32 MEQ/L (21-32); CHLORIDE LEVEL 108 MEQ/L (98-107); CREATININE FOR GFR 1.01 MG/DL (0.70-1.30); GLOMERULAR FILTRATION RATE > 60.0 (>35); GLUCOSE, FASTING 95 MG/DL (70-100); POTASSIUM SERUM 4.7 MEQ/L (3.5-5.1); PROSTATIC SPECIFIC AG MONITOR 0.02 NG/ML (< 4.00); SODIUM LEVEL 143 MEQ/L (136-145); TOTAL PROTEIN 7.2 GM/DL (6.4-8.2)
== END ==
LOC: M WUC 13:46
PROVIDERS: ATTEND Family Medicine
DX: I10 Essential (primary) hypertension (principal); C61 Malignant neoplasm of prostate

== ENCOUNTER 2021-12-23 14:24 | Emergency (ER) | payer MEDICARE ==
[~2021-12-23] VITALS: Ht 165.1 cm; Wt 63.6 kg
[2021-12-23 14:25] VITALS: BP 126/66
== END 2021-12-23 15:55 | disposition home or self-care (01) ==
LOC: M ED 14:24
DX: S62.356A Nondisplaced fracture of shaft of fifth metacarpal bone, right hand, initial encounter for closed fracture (principal); S63.286A Dislocation of proximal interphalangeal joint of right little finger, initial encounter; W18.39XA Other fall on same level, initial encounter; Y92.098 Other place in other non-institutional residence as the place of occurrence of the external cause; Y93.89 Activity, other specified; Y99.8 Other external cause status; I10 Essential (primary) hypertension; Z86.73 Personal history of transient ischemic attack (TIA), and cerebral infarction without residual deficits; Z85.46 Personal history of malignant neoplasm of prostate; Z90.79 Acquired absence of other genital organ(s); Z88.5 Allergy status to narcotic agent; Z88.8 Allergy status to other drugs, medicaments and biological substances; Z79.899 Other long term (current) drug therapy; Z79.82 Long term (current) use of aspirin

== ENCOUNTER → 2022-07-05 | Outpatient (CLI) | payer MEDICARE | LOC: M RAD 10:55 | PROVIDERS: ATTEND Psychiatry & Neurology Neurology | DX: R42 Dizziness and giddiness (principal); R55 Syncope and collapse ==

== ENCOUNTER 2023-03-09 15:34 | Inpatient (IN) | payer MEDICARE ==
[~2023-03-09] VITALS: Ht 170.2 cm; Wt 56.5 kg
[2023-03-09] MEDS ORDERED: IBUPROFEN 400MG TAB PO ONE (16:20)
[2023-03-09 17:11] LABS: BASO % 0.5 % (0.0-1.0); EOS # 0.1 10^3/uL (0.0-0.5); HEMATOCRIT 44.3 % (42.0-52.0); HEMOGLOBIN 14.2 g/dl (13.5-17.5); MEAN CORPUSCULAR HEMOGLOBIN 30.1 pg (27.0-33.0); MEAN CORPUSCULAR HGB CONC 32.1 g/dl (32.0-36.5); MEAN CORPUSCULAR VOLUME 94.1 fl (80.0-96.0); MONO # 0.7 10^3/uL (0.0-0.8); MONO % 11.6 % (2.0-8.0); NEUTROPHILS # 4.3 10^3/uL (1.5-8.5); NEUTROPHILS % 69.6 % (36.0-66.0); PLATELET COUNT, AUTOMATED 199 10^3/uL (150-450); RED BLOOD COUNT 4.71 10^6/uL (4.30-6.10); WHITE BLOOD COUNT 6.1 10^3/uL (4.0-10.0)
[2023-03-09 17:43] LABS: BLOOD UREA NITROGEN 12 MG/DL (9-23); CARBON DIOXIDE LEVEL 28 MMOL/L (20-31); CHLORIDE LEVEL 106 MMOL/L (98-107); CREATININE FOR GFR 0.85 MG/DL (0.70-1.30); GLOMERULAR FILTRATION RATE > 60.0 (>35); GLUCOSE, FASTING 91 MG/DL (74-106); POTASSIUM SERUM 4.4 MMOL/L (3.5-5.1); SODIUM LEVEL 142 MMOL/L (136-145)
[2023-03-09] MEDS ORDERED: ACETAMINOPH W/CODEINE #3 TAB UD PO ONE (17:50)
[2023-03-09] MEDS ORDERED: MOM 30ML SUSPENSION UDC PO PRN (18:05)
[2023-03-09] MEDS ORDERED: MAALOX 30 ML SUSP *UDC PO PRN (18:05)
[2023-03-09] MEDS ORDERED: MULT400T10 PO (18:37)
[2023-03-09] MEDS ORDERED: ATOR1TAB21 PO (18:37)
[2023-03-09] MEDS ORDERED: FLUD0.1T PO (18:37)
[2023-03-09] MEDS ORDERED: HOME MED LIST COMPLETE! XX SCH (18:40)
[2023-03-09] MEDS ORDERED: LORazepam 0.5 MG TAB PO PRN (18:50)
[2023-03-09 20:35] VITALS: BP 122/60; TEMP 97.9; O2SAT 92
[2023-03-09 20:53] LABS: RSV AMPLIFICATION NEGATIVE (NEGATIVE)
[2023-03-09] MEDS: DOCUSATE SODIUM 100MG CAPSULE PO SCH (21:00)
[2023-03-09] MEDS: SINEMET 25-100 MG TAB PO SCH (21:00)
[2023-03-09] MEDS: sulfaSALAzine 500 MG TABEC PO SCH (21:00)
[2023-03-10] MEDS: traMADol 50 MG TAB PO PRN ×2 (01:14→10:07)
[2023-03-10 06:00] VITALS: BP 158/81; TEMP 97.9; O2SAT 96
[2023-03-10 06:53] LABS: BASO % 0.5 % (0.0-1.0); EOS # 0.1 10^3/uL (0.0-0.5); EOS % 1.8 % (0.0-3.0); HEMATOCRIT 42.7 % (42.0-52.0); HEMOGLOBIN 13.7 g/dl (13.5-17.5); LYMPH # 1.3 10^3/uL (1.5-5.0); LYMPH % 17.7 % (24.0-44.0); MEAN CORPUSCULAR HGB CONC 32.1 g/dl (32.0-36.5); MEAN CORPUSCULAR VOLUME 93.4 fl (80.0-96.0); MONO # 0.7 10^3/uL (0.0-0.8); MONO % 9.1 % (2.0-8.0); NEUTROPHILS # 5.2 10^3/uL (1.5-8.5); NEUTROPHILS % 70.8 % (36.0-66.0); PLATELET COUNT, AUTOMATED 198 10^3/uL (150-450); RED BLOOD COUNT 4.57 10^6/uL (4.30-6.10); WHITE BLOOD COUNT 7.3 10^3/uL (4.0-10.0)
[2023-03-10 07:26] LABS: BLOOD UREA NITROGEN 12 MG/DL (9-23); CALCIUM LEVEL 9.4 MG/DL (8.3-10.6); CARBON DIOXIDE LEVEL 27 MMOL/L (20-31); CHLORIDE LEVEL 107 MMOL/L (98-107); CREATININE FOR GFR 0.87 MG/DL (0.70-1.30); GLOMERULAR FILTRATION RATE > 60.0 (>35); GLUCOSE, FASTING 72 MG/DL (74-106); POTASSIUM SERUM 4.1 MMOL/L (3.5-5.1); SODIUM LEVEL 142 MMOL/L (136-145)
[2023-03-10] MEDS: ENOXAPARIN 40MG/0.4ML SYRINGE (J1650 PER 10MG) SC SCH (09:47)
[2023-03-10] MEDS: sulfaSALAzine 500 MG TABEC PO SCH ×3 (09:48→21:33)
[2023-03-10] MEDS: SINEMET 25-100 MG TAB PO SCH ×3 (09:48→21:33)
[2023-03-10] MEDS: SERTRALINE 100 MG TAB PO SCH (09:48)
[2023-03-10] MEDS: FLUDROCORTISONE ACETATE 0.1 MG TAB PO SCH (09:48)
[2023-03-10] MEDS: DOCUSATE SODIUM 100MG CAPSULE PO SCH ×2 (09:48→21:33)
[2023-03-10] MEDS: ASPIRIN 81MG ENTERIC TABLET PO SCH (09:48)
[2023-03-10] MEDS: VITAMIN D 1,000 INTERNATIONAL UNITS TABLET PO SCH (09:49)
[2023-03-10] MEDS: MULTIVITAMINS/MINERALS THERAP 1 TAB PO SCH (09:49)
[2023-03-10] MEDS: ATORVASTATIN 20 MG TAB PO SCH (09:49)
[2023-03-10] MEDS: PANTOPRAZOLE 40MG TAB (PROTONIX) PO SCH (09:49)
[2023-03-10] MEDS: ACETAMINOPHEN TAB 650MG DOSE (2X325MG) PO PRN (13:19)
[2023-03-10 20:00] VITALS: TEMP 98.1; O2SAT 95
[2023-03-10 22:00] VITALS: BP 194/82
[2023-03-11 01:01] VITALS: BP 156/84
[2023-03-11 06:00] VITALS: BP 156/74; TEMP 98.1; O2SAT 94
[2023-03-11 06:07] LABS: BASO % 0.4 % (0.0-1.0); EOS # 0.1 10^3/uL (0.0-0.5); EOS % 1.4 % (0.0-3.0); HEMATOCRIT 43.7 % (42.0-52.0); HEMOGLOBIN 14.2 g/dl (13.5-17.5); LYMPH # 1.1 10^3/uL (1.5-5.0); LYMPH % 13.9 % (24.0-44.0); MEAN CORPUSCULAR HEMOGLOBIN 30.3 pg (27.0-33.0); MEAN CORPUSCULAR HGB CONC 32.5 g/dl (32.0-36.5); MEAN CORPUSCULAR VOLUME 93.2 fl (80.0-96.0); MONO # 0.7 10^3/uL (0.0-0.8); MONO % 8.5 % (2.0-8.0); NEUTROPHILS % 75.4 % (36.0-66.0); PLATELET COUNT, AUTOMATED 226 10^3/uL (150-450); RED BLOOD COUNT 4.69 10^6/uL (4.30-6.10)
[2023-03-11 06:41] LABS: BLOOD UREA NITROGEN 12 MG/DL (9-23); CALCIUM LEVEL 9.9 MG/DL (8.3-10.6); CARBON DIOXIDE LEVEL 26 MMOL/L (20-31); CHLORIDE LEVEL 105 MMOL/L (98-107); CREATININE FOR GFR 0.75 MG/DL (0.70-1.30); GLOMERULAR FILTRATION RATE > 60.0 (>35); GLUCOSE, FASTING 98 MG/DL (74-106); POTASSIUM SERUM 4.4 MMOL/L (3.5-5.1); SODIUM LEVEL 141 MMOL/L (136-145)
[2023-03-11] MEDS: SINEMET 25-100 MG TAB PO SCH ×3 (09:57→21:35)
[2023-03-11] MEDS: VITAMIN D 1,000 INTERNATIONAL UNITS TABLET PO SCH (09:58)
[2023-03-11] MEDS: MULTIVITAMINS/MINERALS THERAP 1 TAB PO SCH (09:58)
[2023-03-11] MEDS: PANTOPRAZOLE 40MG TAB (PROTONIX) PO SCH (09:58)
[2023-03-11] MEDS: DOCUSATE SODIUM 100MG CAPSULE PO SCH ×2 (09:58→21:35)
[2023-03-11] MEDS: FLUDROCORTISONE ACETATE 0.1 MG TAB PO SCH (09:58)
[2023-03-11] MEDS: ATORVASTATIN 20 MG TAB PO SCH (09:58)
[2023-03-11] MEDS: sulfaSALAzine 500 MG TABEC PO SCH ×3 (09:58→21:35)
[2023-03-11] MEDS: ASPIRIN 81MG ENTERIC TABLET PO SCH (09:58)
[2023-03-11] MEDS: SERTRALINE 100 MG TAB PO SCH (09:58)
[2023-03-11] MEDS: ENOXAPARIN 40MG/0.4ML SYRINGE (J1650 PER 10MG) SC SCH (09:59)
[2023-03-11] MEDS ORDERED: PILL CUTTER 1 EACH XX PRN (10:05)
[2023-03-11 14:00] VITALS: BP 141/83; TEMP 98.2; O2SAT 98
[2023-03-11 20:30] VITALS: BP 156/79; TEMP 98.4; O2SAT 93
[2023-03-11] MEDS: ACETAMINOPHEN TAB 650MG DOSE (2X325MG) PO PRN (23:56)
[2023-03-12] MEDS ORDERED: carisoprodoL 350 MG TAB PO ONE (01:15)
[2023-03-12] MEDS ORDERED: LIDOCAINE 5% (LIDODERM) PATCH TD ONE (01:15)
[2023-03-12] MEDS ORDERED: ONDANSETRON 4MG 2ML VIAL IV PRN (01:20)
[2023-03-12 05:30] VITALS: BP 156/81; TEMP 97.5; O2SAT 96
[2023-03-12 06:11] LABS: BASO # 0.1 10^3/uL (0.0-0.2); BASO % 0.7 % (0.0-1.0); EOS # 0.1 10^3/uL (0.0-0.5); EOS % 1.8 % (0.0-3.0); LYMPH # 1.3 10^3/uL (1.5-5.0); LYMPH % 18.5 % (24.0-44.0); MEAN CORPUSCULAR HEMOGLOBIN 30.3 pg (27.0-33.0); MEAN CORPUSCULAR HGB CONC 32.6 g/dl (32.0-36.5); MEAN CORPUSCULAR VOLUME 93.1 fl (80.0-96.0); MONO # 0.7 10^3/uL (0.0-0.8); MONO % 10.5 % (2.0-8.0); NEUTROPHILS # 4.8 10^3/uL (1.5-8.5); NEUTROPHILS % 68.2 % (36.0-66.0); PLATELET COUNT, AUTOMATED 213 10^3/uL (150-450); RED BLOOD COUNT 4.62 10^6/uL (4.30-6.10)
[2023-03-12 06:39] LABS: BLOOD UREA NITROGEN 12 MG/DL (9-23); CARBON DIOXIDE LEVEL 28 MMOL/L (20-31); CHLORIDE LEVEL 104 MMOL/L (98-107); CREATININE FOR GFR 0.85 MG/DL (0.70-1.30); GLOMERULAR FILTRATION RATE > 60.0 (>35); GLUCOSE, FASTING 85 MG/DL (74-106); MAGNESIUM LEVEL 1.9 MG/DL (1.8-2.4); POTASSIUM SERUM 3.9 MMOL/L (3.5-5.1); SODIUM LEVEL 140 MMOL/L (136-145)
[2023-03-12] MEDS: MULTIVITAMINS/MINERALS THERAP 1 TAB PO SCH (09:19)
[2023-03-12] MEDS: SERTRALINE 100 MG TAB PO SCH (09:19)
[2023-03-12] MEDS: ASPIRIN 81MG ENTERIC TABLET PO SCH (09:19)
[2023-03-12] MEDS: FLUDROCORTISONE ACETATE 0.1 MG TAB PO SCH (09:19)
[2023-03-12] MEDS: SINEMET 25-100 MG TAB PO SCH ×2 (09:19→17:00)
[2023-03-12] MEDS: VITAMIN D 1,000 INTERNATIONAL UNITS TABLET PO SCH (09:19)
[2023-03-12] MEDS: DOCUSATE SODIUM 100MG CAPSULE PO SCH ×2 (09:19→22:12)
[2023-03-12] MEDS: sulfaSALAzine 500 MG TABEC PO SCH ×3 (09:19→22:11)
[2023-03-12] MEDS: PANTOPRAZOLE 40MG TAB (PROTONIX) PO SCH (09:20)
[2023-03-12] MEDS: ATORVASTATIN 20 MG TAB PO SCH (09:20)
[2023-03-12] MEDS: ENOXAPARIN 40MG/0.4ML SYRINGE (J1650 PER 10MG) SC SCH (09:20)
[2023-03-12 11:05] VITALS: BP 144/82
[2023-03-12] MEDS: amLODIPine 5 MG TAB PO SCH (14:47)
[2023-03-12 21:47] VITALS: BP 137/66; TEMP 98.1; O2SAT 96
[2023-03-12] MEDS: ACETAMINOPHEN TAB 650MG DOSE (2X325MG) PO PRN (22:12)
[2023-03-13 06:50] VITALS: BP 131/77; TEMP 97.3; O2SAT 97
[2023-03-13] MEDS: ENOXAPARIN 40MG/0.4ML SYRINGE (J1650 PER 10MG) SC SCH (09:23)
[2023-03-13] MEDS: VITAMIN D 1,000 INTERNATIONAL UNITS TABLET PO SCH (09:23)
[2023-03-13] MEDS: DOCUSATE SODIUM 100MG CAPSULE PO SCH ×2 (09:24→21:00)
[2023-03-13] MEDS: MULTIVITAMINS/MINERALS THERAP 1 TAB PO SCH (09:24)
[2023-03-13] MEDS: ASPIRIN 81MG ENTERIC TABLET PO SCH (09:24)
[2023-03-13] MEDS: sulfaSALAzine 500 MG TABEC PO SCH ×3 (09:24→21:00)
[2023-03-13] MEDS: SINEMET 25-100 MG TAB PO SCH ×3 (09:24→16:28)
[2023-03-13] MEDS: ATORVASTATIN 20 MG TAB PO SCH (09:25)
[2023-03-13] MEDS: SERTRALINE 100 MG TAB PO SCH (09:25)
[2023-03-13] MEDS: FLUDROCORTISONE ACETATE 0.1 MG TAB PO SCH (09:25)
[2023-03-13] MEDS: amLODIPine 5 MG TAB PO SCH (09:25)
[2023-03-13] MEDS: PANTOPRAZOLE 40MG TAB (PROTONIX) PO SCH (09:25)
[2023-03-14 06:44] VITALS: BP 149/75; TEMP 98.1; O2SAT 96
[2023-03-14] MEDS: ATORVASTATIN 20 MG TAB PO SCH (09:54)
[2023-03-14] MEDS: MULTIVITAMINS/MINERALS THERAP 1 TAB PO SCH (09:54)
[2023-03-14] MEDS: ASPIRIN 81MG ENTERIC TABLET PO SCH (09:55)
[2023-03-14] MEDS: SERTRALINE 100 MG TAB PO SCH (09:55)
[2023-03-14] MEDS: sulfaSALAzine 500 MG TABEC PO SCH ×3 (09:55→22:10)
[2023-03-14] MEDS: PANTOPRAZOLE 40MG TAB (PROTONIX) PO SCH (09:55)
[2023-03-14] MEDS: SINEMET 25-100 MG TAB PO SCH ×3 (09:55→16:54)
[2023-03-14] MEDS: VITAMIN D 1,000 INTERNATIONAL UNITS TABLET PO SCH (09:55)
[2023-03-14] MEDS: ENOXAPARIN 40MG/0.4ML SYRINGE (J1650 PER 10MG) SC SCH (09:55)
[2023-03-14] MEDS: amLODIPine 5 MG TAB PO SCH (09:55)
[2023-03-14] MEDS: FLUDROCORTISONE ACETATE 0.1 MG TAB PO SCH (09:55)
[2023-03-14] MEDS: DOCUSATE SODIUM 100MG CAPSULE PO SCH ×2 (09:56→19:51)
[2023-03-15 06:11] VITALS: BP 142/71; TEMP 97.9; O2SAT 96
[2023-03-15 08:41] VITALS: BP 142/71
[2023-03-15] MEDS: ASPIRIN 81MG ENTERIC TABLET PO SCH (08:41)
[2023-03-15] MEDS: SERTRALINE 100 MG TAB PO SCH (08:41)
[2023-03-15] MEDS: PANTOPRAZOLE 40MG TAB (PROTONIX) PO SCH (08:41)
[2023-03-15] MEDS: sulfaSALAzine 500 MG TABEC PO SCH (08:41)
[2023-03-15] MEDS: amLODIPine 5 MG TAB PO SCH (08:41)
[2023-03-15] MEDS: MULTIVITAMINS/MINERALS THERAP 1 TAB PO SCH (08:41)
[2023-03-15] MEDS: VITAMIN D 1,000 INTERNATIONAL UNITS TABLET PO SCH (08:41)
[2023-03-15] MEDS: DOCUSATE SODIUM 100MG CAPSULE PO SCH (08:41)
[2023-03-15] MEDS: SINEMET 25-100 MG TAB PO SCH ×2 (08:41→13:17)
[2023-03-15] MEDS: ATORVASTATIN 20 MG TAB PO SCH (08:41)
[2023-03-15] MEDS: FLUDROCORTISONE ACETATE 0.1 MG TAB PO SCH (08:41)
[2023-03-15] MEDS: ENOXAPARIN 40MG/0.4ML SYRINGE (J1650 PER 10MG) SC SCH (08:42)
[2023-03-15 11:26] VITALS: BP 139/71; TEMP 97.9; O2SAT 93
[2023-03-15] MEDS ORDERED: COLA100C5 PO (12:22)
[2023-03-15] MEDS ORDERED: TRAM50TA2 PO (12:22)
[2023-03-15] MEDS ORDERED: AMLO1TAB24 PO (12:22)
[2023-03-15] MEDS ORDERED: MIRA3350 PO (12:24)
== END 2023-03-15 14:15 | disposition home health service (06) | DRG 184 ==
LOC: M ED 15:34 → M ED INP 18:02 → ENRESERV 19:51 → M MS5PR 20:40
PROVIDERS: ADMIT Internal Medicine; ATTEND Internal Medicine
DX: S22.42XA Multiple fractures of ribs, left side, initial encounter for closed fracture (principal); K50.90 Crohn's disease, unspecified, without complications; S22.080A Wedge compression fracture of T11-T12 vertebra, initial encounter for closed fracture; G90.3 Multi-system degeneration of the autonomic nervous system; G20 Parkinson's disease; E78.5 Hyperlipidemia, unspecified; F41.9 Anxiety disorder, unspecified; F32.A Depression, unspecified; E55.9 Vitamin D deficiency, unspecified; Z66 Do not resuscitate; K21.9 Gastro-esophageal reflux disease without esophagitis; R13.12 Dysphagia, oropharyngeal phase; I10 Essential (primary) hypertension; R29.6 Repeated falls; W18.30XA Fall on same level, unspecified, initial encounter; Y92.014 Private driveway to single-family (private) house as the place of occurrence of the external cause; Y99.8 Other external cause status; Y93.E9 Activity, other interior property and clothing maintenance; Z85.46 Personal history of malignant neoplasm of prostate; Z79.899 Other long term (current) drug therapy

== ENCOUNTER 2023-03-17 10:44 | Observation (INO) | payer MEDICARE ==
[~2023-03-17] VITALS: Ht 167.6 cm; Wt 55.3 kg
[2023-03-17] MEDS: PANTOPRAZOLE 40MG TAB (PROTONIX) PO SCH (09:00)
[2023-03-17] MEDS: FLUDROCORTISONE ACETATE 0.1 MG TAB PO SCH (09:00)
[2023-03-17] MEDS: SERTRALINE 100 MG TAB PO SCH (09:00)
[~2023-03-17 10:44] MED LIST changes: +AMLO1TAB24 PO; +ATOR1TAB21 PO; +MIRA3350 PO; +MULT400T10 PO; +TRAM50TA2 PO
[2023-03-17 12:16] LABS: BASO % 0.2 % (0.0-1.0); HEMATOCRIT 41.7 % (42.0-52.0); HEMOGLOBIN 13.8 g/dl (13.5-17.5); LYMPH # 0.4 10^3/uL (1.5-5.0); MEAN CORPUSCULAR HEMOGLOBIN 30.7 pg (27.0-33.0); MEAN CORPUSCULAR HGB CONC 33.1 g/dl (32.0-36.5); MEAN CORPUSCULAR VOLUME 92.7 fl (80.0-96.0); MONO # 0.8 10^3/uL (0.0-0.8); MONO % 5.8 % (2.0-8.0); NEUTROPHILS # 11.6 10^3/uL (1.5-8.5); NEUTROPHILS % 90.5 % (36.0-66.0); PLATELET COUNT, AUTOMATED 247 10^3/uL (150-450); WHITE BLOOD COUNT 12.8 10^3/uL (4.0-10.0)
[2023-03-17 12:32] LABS: INR 0.97; PROTHROMBIN TIME 13.1 SECONDS (12.5-14.5)
[2023-03-17 12:40] LABS: LIPASE 35 U/L (12-53)
[2023-03-17 12:42] LABS: ALBUMIN 4.1 G/DL (3.2-5.2); ALKALINE PHOSPHATASE 98 U/L (46-116); ALT/SGPT < 9 U/L (7.0-40); AST/SGOT 20 U/L (<34); BILIRUBIN,DIRECT 0.2 MG/DL (<0.4); BILIRUBIN,TOTAL 0.7 MG/DL (0.3-1.2); BLOOD UREA NITROGEN 16 MG/DL (9-23); CALCIUM LEVEL 10.4 MG/DL (8.3-10.6); CARBON DIOXIDE LEVEL 27 MMOL/L (20-31); CHLORIDE LEVEL 103 MMOL/L (98-107); GLOMERULAR FILTRATION RATE > 60.0 (>35); GLUCOSE, FASTING 112 MG/DL (74-106); POTASSIUM SERUM 4.1 MMOL/L (3.5-5.1); SODIUM LEVEL 138 MMOL/L (136-145); TOTAL PROTEIN 6.7 G/DL (5.7-8.2)
[2023-03-17 12:55] LABS: RSV AMPLIFICATION NEGATIVE (NEGATIVE)
[2023-03-17] MEDS ORDERED: ACETAMINOPHEN 1000MG 100ML IV BAG IV ONE (13:00)
[2023-03-17] MEDS ORDERED: KETOROLAC 30 MG/ML 1ML VIAL IV ONE ×2 (14:30)
[2023-03-17] MEDS ORDERED: KETOROLAC 30 MG/ML 1ML VIAL As Ordered ONE (14:31)
[2023-03-17] MEDS ORDERED: MED REC IN PROGRESS XX SCH (15:50)
[2023-03-17] MEDS ORDERED: AMLO1TAB24 PO (16:20)
[2023-03-17] MEDS ORDERED: TRAM50TA2 PO (16:20)
[2023-03-17] MEDS ORDERED: COLA100C5 PO (16:20)
[2023-03-17] MEDS ORDERED: MIRA3350 PO (16:20)
[2023-03-17] MEDS ORDERED: HOME MED LIST COMPLETE! XX SCH (16:25)
[2023-03-17 17:00] VITALS: BP 117/72; TEMP 98.6; O2SAT 94
[2023-03-17] MEDS ORDERED: MIRALAX *UNIT DOSE* 17GM PACKET PO PRN (18:25)
[2023-03-17] MEDS: traMADol 50 MG TAB PO PRN (18:59)
[2023-03-17] MEDS: SINEMET 25-100 MG TAB PO SCH (19:46)
[2023-03-17 20:02] VITALS: BP 121/71; TEMP 98.1; O2SAT 94
[2023-03-17] MEDS: sulfaSALAzine 500 MG TABEC PO SCH (20:37)
[2023-03-17] MEDS: ACETAMINOPHEN TAB 650MG DOSE (2X325MG) PO PRN (20:37)
[2023-03-17] MEDS: DOCUSATE SODIUM 100MG CAPSULE PO SCH (20:37)
[2023-03-18 05:02] VITALS: BP 141/74; TEMP 97.9; O2SAT 95
[2023-03-18] MEDS: traMADol 50 MG TAB PO PRN ×3 (05:17→17:23)
[2023-03-18 06:25] LABS: HEMATOCRIT 36.3 % (42.0-52.0); MEAN CORPUSCULAR HEMOGLOBIN 30.5 pg (27.0-33.0); MEAN CORPUSCULAR HGB CONC 33.1 g/dl (32.0-36.5); MEAN CORPUSCULAR VOLUME 92.4 fl (80.0-96.0); PLATELET COUNT, AUTOMATED 254 10^3/uL (150-450); RED BLOOD COUNT 3.93 10^6/uL (4.30-6.10); WHITE BLOOD COUNT 8.7 10^3/uL (4.0-10.0)
[2023-03-18 06:50] LABS: BLOOD UREA NITROGEN 23 MG/DL (9-23); CALCIUM LEVEL 9.2 MG/DL (8.3-10.6); CARBON DIOXIDE LEVEL 26 MMOL/L (20-31); CHLORIDE LEVEL 104 MMOL/L (98-107); CREATININE FOR GFR 0.85 MG/DL (0.70-1.30); GLOMERULAR FILTRATION RATE > 60.0 (>35); GLUCOSE, FASTING 92 MG/DL (74-106); SODIUM LEVEL 138 MMOL/L (136-145)
[2023-03-18] MEDS: ASPIRIN 81MG ENTERIC TABLET PO SCH (08:17)
[2023-03-18] MEDS: DOCUSATE SODIUM 100MG CAPSULE PO SCH ×2 (08:17→20:01)
[2023-03-18] MEDS: sulfaSALAzine 500 MG TABEC PO SCH ×3 (08:17→20:02)
[2023-03-18] MEDS: FLUDROCORTISONE ACETATE 0.1 MG TAB PO SCH (08:17)
[2023-03-18] MEDS: PANTOPRAZOLE 40MG TAB (PROTONIX) PO SCH (08:17)
[2023-03-18] MEDS: amLODIPine 5 MG TAB PO SCH (08:18)
[2023-03-18] MEDS: SERTRALINE 100 MG TAB PO SCH (08:18)
[2023-03-18] MEDS: SINEMET 25-100 MG TAB PO SCH ×3 (08:19→20:01)
[2023-03-18] MEDS: ENOXAPARIN 40MG/0.4ML SYRINGE (J1650 PER 10MG) SC SCH (08:20)
[2023-03-18] MEDS: ATORVASTATIN 20 MG TAB PO SCH (08:21)
[2023-03-18] MEDS: ACETAMINOPHEN TAB 650MG DOSE (2X325MG) PO PRN ×2 (09:45→18:43)
[2023-03-18 14:00] VITALS: BP 122/59; TEMP 97; O2SAT 94
[2023-03-18] MEDS ORDERED: PILL CUTTER 1 EACH XX PRN (16:50)
[2023-03-18 20:23] VITALS: BP 148/72; TEMP 97.9; O2SAT 91
[2023-03-19] MEDS: ACETAMINOPHEN TAB 650MG DOSE (2X325MG) PO PRN ×4 (02:35→23:59)
[2023-03-19] MEDS: SINEMET 25-100 MG TAB PO SCH ×3 (06:06→18:31)
[2023-03-19 06:09] VITALS: BP 151/72; TEMP 98.6; O2SAT 93
[2023-03-19 07:34] LABS: BASO % 0.3 % (0.0-1.0); EOS # 0.1 10^3/uL (0.0-0.5); EOS % 1.2 % (0.0-3.0); HEMATOCRIT 33.9 % (42.0-52.0); HEMOGLOBIN 11.2 g/dl (13.5-17.5); LYMPH # 1.3 10^3/uL (1.5-5.0); LYMPH % 13.5 % (24.0-44.0); MEAN CORPUSCULAR HEMOGLOBIN 30.9 pg (27.0-33.0); MEAN CORPUSCULAR VOLUME 93.6 fl (80.0-96.0); MONO # 1.2 10^3/uL (0.0-0.8); MONO % 12.4 % (2.0-8.0); NEUTROPHILS # 6.8 10^3/uL (1.5-8.5); NEUTROPHILS % 72.3 % (36.0-66.0); PLATELET COUNT, AUTOMATED 235 10^3/uL (150-450); RED BLOOD COUNT 3.62 10^6/uL (4.30-6.10); WHITE BLOOD COUNT 9.4 10^3/uL (4.0-10.0)
[2023-03-19 08:04] LABS: BLOOD UREA NITROGEN 18 MG/DL (9-23); CARBON DIOXIDE LEVEL 28 MMOL/L (20-31); CHLORIDE LEVEL 103 MMOL/L (98-107); CREATININE FOR GFR 0.69 MG/DL (0.70-1.30); GLOMERULAR FILTRATION RATE > 60.0 (>35); GLUCOSE, FASTING 99 MG/DL (74-106); MAGNESIUM LEVEL 1.8 MG/DL (1.8-2.4); POTASSIUM SERUM 4.5 MMOL/L (3.5-5.1); SODIUM LEVEL 136 MMOL/L (136-145)
[2023-03-19] MEDS: ASPIRIN 81MG ENTERIC TABLET PO SCH (08:32)
[2023-03-19] MEDS: sulfaSALAzine 500 MG TABEC PO SCH ×3 (08:32→19:49)
[2023-03-19] MEDS: SERTRALINE 100 MG TAB PO SCH (08:32)
[2023-03-19] MEDS: FLUDROCORTISONE ACETATE 0.1 MG TAB PO SCH (08:32)
[2023-03-19] MEDS: PANTOPRAZOLE 40MG TAB (PROTONIX) PO SCH (08:33)
[2023-03-19] MEDS: DOCUSATE SODIUM 100MG CAPSULE PO SCH ×2 (08:33→19:49)
[2023-03-19] MEDS: ATORVASTATIN 20 MG TAB PO SCH (08:33)
[2023-03-19] MEDS: ENOXAPARIN 40MG/0.4ML SYRINGE (J1650 PER 10MG) SC SCH (08:34)
[2023-03-19] MEDS: amLODIPine 5 MG TAB PO SCH (08:37)
[2023-03-19] MEDS: traMADol 50 MG TAB PO PRN (12:53)
[2023-03-19] MEDS: PERCOCET 5MG/325MG TAB PO PRN (18:32)
[2023-03-20] MEDS: ACETAMINOPHEN TAB 650MG DOSE (2X325MG) PO PRN ×3 (05:24→21:27)
[2023-03-20] MEDS: SINEMET 25-100 MG TAB PO SCH ×3 (05:25→18:55)
[2023-03-20 06:08] LABS: BASO % 0.4 % (0.0-1.0); EOS # 0.1 10^3/uL (0.0-0.5); EOS % 1.6 % (0.0-3.0); HEMATOCRIT 33.4 % (42.0-52.0); HEMOGLOBIN 10.8 g/dl (13.5-17.5); LYMPH % 12.7 % (24.0-44.0); MEAN CORPUSCULAR HEMOGLOBIN 30.3 pg (27.0-33.0); MEAN CORPUSCULAR HGB CONC 32.3 g/dl (32.0-36.5); MEAN CORPUSCULAR VOLUME 93.6 fl (80.0-96.0); MONO # 0.8 10^3/uL (0.0-0.8); MONO % 10.4 % (2.0-8.0); NEUTROPHILS # 5.9 10^3/uL (1.5-8.5); NEUTROPHILS % 74.4 % (36.0-66.0); PLATELET COUNT, AUTOMATED 237 10^3/uL (150-450); RED BLOOD COUNT 3.57 10^6/uL (4.30-6.10); WHITE BLOOD COUNT 7.9 10^3/uL (4.0-10.0)
[2023-03-20 06:11] LABS: BLOOD UREA NITROGEN 13 MG/DL (9-23); CALCIUM LEVEL 8.7 MG/DL (8.3-10.6); CARBON DIOXIDE LEVEL 32 MMOL/L (20-31); CHLORIDE LEVEL 104 MMOL/L (98-107); CREATININE FOR GFR 0.65 MG/DL (0.70-1.30); GLOMERULAR FILTRATION RATE > 60.0 (>35); GLUCOSE, FASTING 86 MG/DL (74-106); MAGNESIUM LEVEL 1.8 MG/DL (1.8-2.4); POTASSIUM SERUM 4.2 MMOL/L (3.5-5.1); SODIUM LEVEL 139 MMOL/L (136-145)
[2023-03-20 06:32] VITALS: BP 127/60; TEMP 97.5; O2SAT 93
[2023-03-20] MEDS: SERTRALINE 100 MG TAB PO SCH (09:52)
[2023-03-20] MEDS: ATORVASTATIN 20 MG TAB PO SCH (09:52)
[2023-03-20] MEDS: amLODIPine 5 MG TAB PO SCH (09:52)
[2023-03-20] MEDS: PANTOPRAZOLE 40MG TAB (PROTONIX) PO SCH (09:52)
[2023-03-20] MEDS: FLUDROCORTISONE ACETATE 0.1 MG TAB PO SCH (09:52)
[2023-03-20] MEDS: traMADol 50 MG TAB PO PRN (09:53)
[2023-03-20] MEDS: sulfaSALAzine 500 MG TABEC PO SCH ×3 (09:53→21:27)
[2023-03-20] MEDS: DOCUSATE SODIUM 100MG CAPSULE PO SCH ×2 (09:53→21:28)
[2023-03-20] MEDS: ASPIRIN 81MG ENTERIC TABLET PO SCH (09:53)
[2023-03-20] MEDS: ENOXAPARIN 40MG/0.4ML SYRINGE (J1650 PER 10MG) SC SCH (09:54)
[2023-03-20] MEDS: PERCOCET 5MG/325MG TAB PO PRN (15:04)
[2023-03-20] MEDS: LORazepam 0.5 MG TAB PO PRN (21:27)
[2023-03-21] MEDS: PERCOCET 5MG/325MG TAB PO PRN ×3 (02:41→19:53)
[2023-03-21 06:43] VITALS: BP 141/65; TEMP 97.9; O2SAT 96
[2023-03-21] MEDS: traMADol 50 MG TAB PO PRN (06:57)
[2023-03-21] MEDS: SINEMET 25-100 MG TAB PO SCH ×3 (06:57→18:03)
[2023-03-21] MEDS: DOCUSATE SODIUM 100MG CAPSULE PO SCH ×2 (09:05→19:53)
[2023-03-21] MEDS: PANTOPRAZOLE 40MG TAB (PROTONIX) PO SCH (09:05)
[2023-03-21] MEDS: ENOXAPARIN 40MG/0.4ML SYRINGE (J1650 PER 10MG) SC SCH (09:05)
[2023-03-21] MEDS: sulfaSALAzine 500 MG TABEC PO SCH ×3 (09:07→19:52)
[2023-03-21] MEDS: ASPIRIN 81MG ENTERIC TABLET PO SCH (09:07)
[2023-03-21] MEDS: amLODIPine 5 MG TAB PO SCH (09:07)
[2023-03-21] MEDS: ATORVASTATIN 20 MG TAB PO SCH (09:07)
[2023-03-21] MEDS: FLUDROCORTISONE ACETATE 0.1 MG TAB PO SCH (09:07)
[2023-03-21] MEDS: SERTRALINE 100 MG TAB PO SCH (09:08)
[2023-03-21] MEDS: ACETAMINOPHEN TAB 650MG DOSE (2X325MG) PO PRN ×2 (10:07→18:03)
[2023-03-21] MEDS ORDERED: KETOROLAC 30 MG/ML 1ML VIAL IV PRN (20:45)
[2023-03-21] MEDS: LIDOCAINE 5% (LIDODERM) PATCH TD SCH (21:33)
[2023-03-21] MEDS: RAMELTEON 8 MG TAB (ROZEREM) PO PRN (21:33)
[2023-03-22 05:45] VITALS: BP 148/70; TEMP 97.1; O2SAT 92
[2023-03-22] MEDS: SINEMET 25-100 MG TAB PO SCH ×3 (05:49→17:37)
[2023-03-22] MEDS: PERCOCET 5MG/325MG TAB PO PRN (05:50)
[2023-03-22] MEDS: PANTOPRAZOLE 40MG TAB (PROTONIX) PO SCH (09:37)
[2023-03-22] MEDS: ENOXAPARIN 40MG/0.4ML SYRINGE (J1650 PER 10MG) SC SCH (09:37)
[2023-03-22] MEDS: ASPIRIN 81MG ENTERIC TABLET PO SCH (09:37)
[2023-03-22] MEDS: FLUDROCORTISONE ACETATE 0.1 MG TAB PO SCH (09:37)
[2023-03-22] MEDS: sulfaSALAzine 500 MG TABEC PO SCH ×3 (09:37→20:09)
[2023-03-22] MEDS: ATORVASTATIN 20 MG TAB PO SCH (09:38)
[2023-03-22] MEDS: SERTRALINE 100 MG TAB PO SCH (09:38)
[2023-03-22] MEDS: amLODIPine 5 MG TAB PO SCH (09:38)
[2023-03-22] MEDS: DOCUSATE SODIUM 100MG CAPSULE PO SCH ×2 (09:38→20:09)
[2023-03-22] MEDS: traMADol 50 MG TAB PO PRN (15:45)
[2023-03-22] MEDS: ACETAMINOPHEN TAB 650MG DOSE (2X325MG) PO PRN (17:37)
[2023-03-22] MEDS: LIDOCAINE 5% (LIDODERM) PATCH TD SCH (20:09)
[2023-03-23] MEDS: PERCOCET 5MG/325MG TAB PO PRN ×3 (00:46→16:09)
[2023-03-23] MEDS: SINEMET 25-100 MG TAB PO SCH ×3 (06:58→18:08)
[2023-03-23 07:19] VITALS: BP 145/71; TEMP 98.1; O2SAT 93
[2023-03-23 07:19] LABS: HEMATOCRIT 35.1 % (42.0-52.0); HEMOGLOBIN 11.2 g/dl (13.5-17.5); MEAN CORPUSCULAR HGB CONC 31.9 g/dl (32.0-36.5); MEAN CORPUSCULAR VOLUME 94.1 fl (80.0-96.0); PLATELET COUNT, AUTOMATED 302 10^3/uL (150-450); RED BLOOD COUNT 3.73 10^6/uL (4.30-6.10); WHITE BLOOD COUNT 6.6 10^3/uL (4.0-10.0)
[2023-03-23] MEDS: ENOXAPARIN 40MG/0.4ML SYRINGE (J1650 PER 10MG) SC SCH (08:32)
[2023-03-23] MEDS: sulfaSALAzine 500 MG TABEC PO SCH ×3 (08:32→20:45)
[2023-03-23] MEDS: ATORVASTATIN 20 MG TAB PO SCH (08:32)
[2023-03-23] MEDS: ASPIRIN 81MG ENTERIC TABLET PO SCH (08:32)
[2023-03-23] MEDS: FLUDROCORTISONE ACETATE 0.1 MG TAB PO SCH (08:32)
[2023-03-23] MEDS: amLODIPine 5 MG TAB PO SCH (08:32)
[2023-03-23] MEDS: DOCUSATE SODIUM 100MG CAPSULE PO SCH ×2 (08:32→20:44)
[2023-03-23] MEDS: PANTOPRAZOLE 40MG TAB (PROTONIX) PO SCH (08:32)
[2023-03-23] MEDS: SERTRALINE 100 MG TAB PO SCH (08:33)
[2023-03-23] MEDS: traMADol 50 MG TAB PO PRN ×2 (11:31→20:48)
[2023-03-23] MEDS: LIDOCAINE 5% (LIDODERM) PATCH TD SCH (20:45)
[2023-03-24] MEDS: PERCOCET 5MG/325MG TAB PO PRN ×4 (01:06→21:31)
[2023-03-24] MEDS: SINEMET 25-100 MG TAB PO SCH ×3 (06:03→21:31)
[2023-03-24 06:04] VITALS: BP 155/75; TEMP 98.2; O2SAT 94
[2023-03-24] MEDS: ACETAMINOPHEN TAB 650MG DOSE (2X325MG) PO PRN (06:11)
[2023-03-24] MEDS: ASPIRIN 81MG ENTERIC TABLET PO SCH (08:19)
[2023-03-24] MEDS: sulfaSALAzine 500 MG TABEC PO SCH ×3 (08:19→21:29)
[2023-03-24] MEDS: ENOXAPARIN 40MG/0.4ML SYRINGE (J1650 PER 10MG) SC SCH (08:19)
[2023-03-24] MEDS: DOCUSATE SODIUM 100MG CAPSULE PO SCH ×2 (08:20→21:31)
[2023-03-24] MEDS: SERTRALINE 100 MG TAB PO SCH (08:20)
[2023-03-24] MEDS: ATORVASTATIN 20 MG TAB PO SCH (08:20)
[2023-03-24] MEDS: PANTOPRAZOLE 40MG TAB (PROTONIX) PO SCH (08:21)
[2023-03-24] MEDS: amLODIPine 5 MG TAB PO SCH (08:21)
[2023-03-24] MEDS: FLUDROCORTISONE ACETATE 0.1 MG TAB PO SCH (08:21)
[2023-03-24] MEDS: RAMELTEON 8 MG TAB (ROZEREM) PO PRN (21:29)
[2023-03-24] MEDS: LIDOCAINE 5% (LIDODERM) PATCH TD SCH (21:33)
[2023-03-25] MEDS: traMADol 50 MG TAB PO PRN (03:06)
[2023-03-25] MEDS: PERCOCET 5MG/325MG TAB PO PRN ×5 (03:41→20:57)
[2023-03-25] MEDS: ACETAMINOPHEN TAB 650MG DOSE (2X325MG) PO PRN (04:50)
[2023-03-25 05:32] VITALS: BP 148/74; TEMP 98.2; O2SAT 94
[2023-03-25 06:10] LABS: BASO % 0.5 % (0.0-1.0); EOS # 0.2 10^3/uL (0.0-0.5); HEMATOCRIT 33.4 % (42.0-52.0); HEMOGLOBIN 10.6 g/dl (13.5-17.5); LYMPH # 0.7 10^3/uL (1.5-5.0); LYMPH % 9.7 % (24.0-44.0); MEAN CORPUSCULAR HEMOGLOBIN 29.9 pg (27.0-33.0); MEAN CORPUSCULAR HGB CONC 31.7 g/dl (32.0-36.5); MEAN CORPUSCULAR VOLUME 94.1 fl (80.0-96.0); MONO # 0.7 10^3/uL (0.0-0.8); MONO % 9.6 % (2.0-8.0); NEUTROPHILS # 5.9 10^3/uL (1.5-8.5); NEUTROPHILS % 77.8 % (36.0-66.0); PLATELET COUNT, AUTOMATED 310 10^3/uL (150-450); RED BLOOD COUNT 3.55 10^6/uL (4.30-6.10); WHITE BLOOD COUNT 7.6 10^3/uL (4.0-10.0)
[2023-03-25 06:23] LABS: BLOOD UREA NITROGEN 13 MG/DL (9-23); CALCIUM LEVEL 8.9 MG/DL (8.3-10.6); CARBON DIOXIDE LEVEL 30 MMOL/L (20-31); CHLORIDE LEVEL 103 MMOL/L (98-107); CREATININE FOR GFR 0.65 MG/DL (0.70-1.30); GLOMERULAR FILTRATION RATE > 60.0 (>35); GLUCOSE, FASTING 91 MG/DL (74-106); MAGNESIUM LEVEL 1.9 MG/DL (1.8-2.4); POTASSIUM SERUM 3.9 MMOL/L (3.5-5.1); SODIUM LEVEL 138 MMOL/L (136-145)
[2023-03-25] MEDS: SINEMET 25-100 MG TAB PO SCH ×3 (06:43→18:17)
[2023-03-25] MEDS: ASPIRIN 81MG ENTERIC TABLET PO SCH (08:48)
[2023-03-25] MEDS: DOCUSATE SODIUM 100MG CAPSULE PO SCH ×2 (08:48→20:56)
[2023-03-25] MEDS: sulfaSALAzine 500 MG TABEC PO SCH ×3 (08:48→20:56)
[2023-03-25] MEDS: PANTOPRAZOLE 40MG TAB (PROTONIX) PO SCH (08:48)
[2023-03-25] MEDS: ATORVASTATIN 20 MG TAB PO SCH (08:48)
[2023-03-25] MEDS: SERTRALINE 100 MG TAB PO SCH (08:49)
[2023-03-25] MEDS: FLUDROCORTISONE ACETATE 0.1 MG TAB PO SCH (08:49)
[2023-03-25] MEDS: amLODIPine 5 MG TAB PO SCH (08:49)
[2023-03-25] MEDS: ENOXAPARIN 40MG/0.4ML SYRINGE (J1650 PER 10MG) SC SCH (08:49)
[2023-03-25] MEDS: LIDOCAINE 5% (LIDODERM) PATCH TD SCH (20:55)
[2023-03-25] MEDS: RAMELTEON 8 MG TAB (ROZEREM) PO PRN (20:56)
[2023-03-26] MEDS: PERCOCET 5MG/325MG TAB PO PRN ×3 (01:52→20:06)
[2023-03-26] MEDS: ACETAMINOPHEN TAB 650MG DOSE (2X325MG) PO PRN (03:10)
[2023-03-26] MEDS: traMADol 50 MG TAB PO PRN (04:59)
[2023-03-26] MEDS ORDERED: oxyCODONE 5MG TAB PO PRN (05:00)
[2023-03-26 06:00] VITALS: BP 162/77; TEMP 98.8; O2SAT 94
[2023-03-26] MEDS: SINEMET 25-100 MG TAB PO SCH ×3 (07:16→18:32)
[2023-03-26 07:32] LABS: BASO % 0.4 % (0.0-1.0); EOS # 0.2 10^3/uL (0.0-0.5); EOS % 2.1 % (0.0-3.0); HEMATOCRIT 32.4 % (42.0-52.0); HEMOGLOBIN 10.5 g/dl (13.5-17.5); LYMPH # 0.9 10^3/uL (1.5-5.0); LYMPH % 10.3 % (24.0-44.0); MEAN CORPUSCULAR HEMOGLOBIN 30.3 pg (27.0-33.0); MEAN CORPUSCULAR HGB CONC 32.4 g/dl (32.0-36.5); MEAN CORPUSCULAR VOLUME 93.6 fl (80.0-96.0); MONO # 0.7 10^3/uL (0.0-0.8); MONO % 8.5 % (2.0-8.0); NEUTROPHILS # 6.7 10^3/uL (1.5-8.5); NEUTROPHILS % 78.3 % (36.0-66.0); PLATELET COUNT, AUTOMATED 294 10^3/uL (150-450); RED BLOOD COUNT 3.46 10^6/uL (4.30-6.10); WHITE BLOOD COUNT 8.5 10^3/uL (4.0-10.0)
[2023-03-26 08:24] LABS: BLOOD UREA NITROGEN 13 MG/DL (9-23); CALCIUM LEVEL 9.8 MG/DL (8.3-10.6); CARBON DIOXIDE LEVEL 28 MMOL/L (20-31); CHLORIDE LEVEL 102 MMOL/L (98-107); CREATININE FOR GFR 0.65 MG/DL (0.70-1.30); GLOMERULAR FILTRATION RATE > 60.0 (>35); GLUCOSE, FASTING 90 MG/DL (74-106); POTASSIUM SERUM 4.1 MMOL/L (3.5-5.1); SODIUM LEVEL 137 MMOL/L (136-145)
[2023-03-26] MEDS: DOCUSATE SODIUM 100MG CAPSULE PO SCH ×2 (09:03→20:29)
[2023-03-26] MEDS: FLUDROCORTISONE ACETATE 0.1 MG TAB PO SCH (09:03)
[2023-03-26] MEDS: PANTOPRAZOLE 40MG TAB (PROTONIX) PO SCH (09:03)
[2023-03-26] MEDS: SERTRALINE 100 MG TAB PO SCH (09:03)
[2023-03-26] MEDS: ASPIRIN 81MG ENTERIC TABLET PO SCH (09:03)
[2023-03-26] MEDS: sulfaSALAzine 500 MG TABEC PO SCH ×3 (09:03→20:28)
[2023-03-26] MEDS: amLODIPine 5 MG TAB PO SCH (09:05)
[2023-03-26] MEDS: ATORVASTATIN 20 MG TAB PO SCH (09:05)
[2023-03-26] MEDS: ENOXAPARIN 40MG/0.4ML SYRINGE (J1650 PER 10MG) SC SCH (09:09)
[2023-03-26] MEDS: LIDOCAINE 5% (LIDODERM) PATCH TD SCH (20:29)
[2023-03-27] MEDS: PERCOCET 5MG/325MG TAB PO PRN ×3 (02:23→18:25)
[2023-03-27 06:13] LABS: BASO % 0.5 % (0.0-1.0); EOS # 0.2 10^3/uL (0.0-0.5); EOS % 2.3 % (0.0-3.0); HEMATOCRIT 33.7 % (42.0-52.0); HEMOGLOBIN 10.6 g/dl (13.5-17.5); LYMPH # 0.8 10^3/uL (1.5-5.0); LYMPH % 10.5 % (24.0-44.0); MEAN CORPUSCULAR HEMOGLOBIN 29.6 pg (27.0-33.0); MEAN CORPUSCULAR HGB CONC 31.5 g/dl (32.0-36.5); MEAN CORPUSCULAR VOLUME 94.1 fl (80.0-96.0); MONO # 0.6 10^3/uL (0.0-0.8); MONO % 8.3 % (2.0-8.0); NEUTROPHILS # 5.8 10^3/uL (1.5-8.5); PLATELET COUNT, AUTOMATED 334 10^3/uL (150-450); RED BLOOD COUNT 3.58 10^6/uL (4.30-6.10); WHITE BLOOD COUNT 7.5 10^3/uL (4.0-10.0)
[2023-03-27] MEDS: SINEMET 25-100 MG TAB PO SCH ×3 (06:22→18:26)
[2023-03-27 06:37] LABS: BLOOD UREA NITROGEN 10 MG/DL (9-23); CARBON DIOXIDE LEVEL 31 MMOL/L (20-31); CHLORIDE LEVEL 103 MMOL/L (98-107); CREATININE FOR GFR 0.67 MG/DL (0.70-1.30); GLOMERULAR FILTRATION RATE > 60.0 (>35); GLUCOSE, FASTING 87 MG/DL (74-106); MAGNESIUM LEVEL 1.9 MG/DL (1.8-2.4); POTASSIUM SERUM 4.4 MMOL/L (3.5-5.1); SODIUM LEVEL 139 MMOL/L (136-145)
[2023-03-27] MEDS: SERTRALINE 100 MG TAB PO SCH (08:23)
[2023-03-27] MEDS: FLUDROCORTISONE ACETATE 0.1 MG TAB PO SCH (08:23)
[2023-03-27] MEDS: sulfaSALAzine 500 MG TABEC PO SCH ×3 (08:23→20:31)
[2023-03-27] MEDS: PANTOPRAZOLE 40MG TAB (PROTONIX) PO SCH (08:23)
[2023-03-27] MEDS: ASPIRIN 81MG ENTERIC TABLET PO SCH (08:23)
[2023-03-27] MEDS: amLODIPine 5 MG TAB PO SCH (08:23)
[2023-03-27] MEDS: DOCUSATE SODIUM 100MG CAPSULE PO SCH ×2 (08:24→20:31)
[2023-03-27] MEDS: ATORVASTATIN 20 MG TAB PO SCH (08:24)
[2023-03-27] MEDS: ENOXAPARIN 40MG/0.4ML SYRINGE (J1650 PER 10MG) SC SCH (08:24)
[2023-03-27] MEDS ORDERED: QUEtiapine FUMARATE 25 MG TAB PO SCH (09:00)
[2023-03-27] MEDS: ACETAMINOPHEN TAB 650MG DOSE (2X325MG) PO PRN (09:44)
[2023-03-27] MEDS: LORazepam 0.5 MG TAB PO PRN (09:45)
[2023-03-27] MEDS: traMADol 50 MG TAB PO PRN (11:35)
[2023-03-27] MEDS: RAMELTEON 8 MG TAB (ROZEREM) PO PRN (20:31)
[2023-03-27] MEDS: QUEtiapine FUMARATE 25 MG TAB PO PRN (20:31)
[2023-03-27] MEDS: LIDOCAINE 5% (LIDODERM) PATCH TD SCH (20:31)
[2023-03-27] MEDS ORDERED: SENNA 8.6 MG TAB (SENOKOT) PO SCH (21:00)
[2023-03-28] MEDS: ACETAMINOPHEN TAB 650MG DOSE (2X325MG) PO PRN (02:03)
[2023-03-28] MEDS: traMADol 50 MG TAB PO PRN (02:04)
[2023-03-28] MEDS: SINEMET 25-100 MG TAB PO SCH ×2 (06:41→11:07)
[2023-03-28 06:44] VITALS: BP 158/76; TEMP 98.2; O2SAT 96
[2023-03-28 07:29] VITALS: BP 158/76
[2023-03-28] MEDS: SERTRALINE 100 MG TAB PO SCH (07:29)
[2023-03-28] MEDS: amLODIPine 5 MG TAB PO SCH (07:29)
[2023-03-28] MEDS: sulfaSALAzine 500 MG TABEC PO SCH (07:29)
[2023-03-28] MEDS: FLUDROCORTISONE ACETATE 0.1 MG TAB PO SCH (07:29)
[2023-03-28] MEDS: ASPIRIN 81MG ENTERIC TABLET PO SCH (07:29)
[2023-03-28] MEDS: PANTOPRAZOLE 40MG TAB (PROTONIX) PO SCH (07:29)
[2023-03-28] MEDS: QUEtiapine FUMARATE 25 MG TAB PO PRN (07:30)
[2023-03-28] MEDS: ATORVASTATIN 20 MG TAB PO SCH (07:31)
[2023-03-28] MEDS: PERCOCET 5MG/325MG TAB PO PRN (07:31)
[2023-03-28] MEDS: DOCUSATE SODIUM 100MG CAPSULE PO SCH (07:31)
[2023-03-28 07:51] LABS: BASO # 0.1 10^3/uL (0.0-0.2); BASO % 0.5 % (0.0-1.0); EOS # 0.1 10^3/uL (0.0-0.5); EOS % 1.3 % (0.0-3.0); HEMATOCRIT 37.2 % (42.0-52.0); HEMOGLOBIN 11.9 g/dl (13.5-17.5); LYMPH # 0.8 10^3/uL (1.5-5.0); LYMPH % 8.1 % (24.0-44.0); MEAN CORPUSCULAR HEMOGLOBIN 30.1 pg (27.0-33.0); MEAN CORPUSCULAR VOLUME 94.2 fl (80.0-96.0); MONO # 0.8 10^3/uL (0.0-0.8); MONO % 8.7 % (2.0-8.0); NEUTROPHILS # 7.9 10^3/uL (1.5-8.5); PLATELET COUNT, AUTOMATED 406 10^3/uL (150-450); RED BLOOD COUNT 3.95 10^6/uL (4.30-6.10); WHITE BLOOD COUNT 9.7 10^3/uL (4.0-10.0)
[2023-03-28] MEDS: ENOXAPARIN 40MG/0.4ML SYRINGE (J1650 PER 10MG) SC SCH (08:01)
[2023-03-28 08:19] LABS: BLOOD UREA NITROGEN 11 MG/DL (9-23); CALCIUM LEVEL 9.4 MG/DL (8.3-10.6); CARBON DIOXIDE LEVEL 29 MMOL/L (20-31); CHLORIDE LEVEL 101 MMOL/L (98-107); CREATININE FOR GFR 0.57 MG/DL (0.70-1.30); GLOMERULAR FILTRATION RATE > 60.0 (>35); GLUCOSE, FASTING 103 MG/DL (74-106); POTASSIUM SERUM 3.6 MMOL/L (3.5-5.1); SODIUM LEVEL 137 MMOL/L (136-145)
[2023-03-28] MEDS ORDERED: TAMSULOSIN 0.4 MG CAP PO SCH (09:00)
[2023-03-28] MEDS ORDERED: FLOM0.4C39 PO (14:15)
[2023-03-28] MEDS ORDERED: TRAM50TA2 PO (18:24)
== END 2023-03-28 14:15 | disposition home health service (06) ==
LOC: EDBD 10:44 → M ED 10:44 → M ED INP 10:45 → INTOOBSV 13:30 → M ED INP 13:30 → UNDOADMOB 13:30 → ENRESERV 14:29 → M ED INP 16:50 → M MS5PR 16:50
PROVIDERS: ADMIT Internal Medicine; ATTEND Internal Medicine
DX: S42.295A Other nondisplaced fracture of upper end of left humerus, initial encounter for closed fracture (principal); W18.30XA Fall on same level, unspecified, initial encounter; Y92.89 Other specified places as the place of occurrence of the external cause; G20 Parkinson's disease; I95.1 Orthostatic hypotension; E78.5 Hyperlipidemia, unspecified; K50.90 Crohn's disease, unspecified, without complications; F32.A Depression, unspecified; E55.9 Vitamin D deficiency, unspecified; K21.9 Gastro-esophageal reflux disease without esophagitis; Z85.46 Personal history of malignant neoplasm of prostate; Z92.3 Personal history of irradiation; R26.81 Unsteadiness on feet; R35.1 Nocturia; Z91.81 History of falling; M54.9 Dorsalgia, unspecified; S22.42XD Multiple fractures of ribs, left side, subsequent encounter for fracture with routine healing; S22.089D Unspecified fracture of T11-T12 vertebra, subsequent encounter for fracture with routine healing; W18.30XD Fall on same level, unspecified, subsequent encounter; R13.10 Dysphagia, unspecified; Z79.899 Other long term (current) drug therapy; Z79.82 Long term (current) use of aspirin
CPT/HCPCS: 36415; 70450; 72125; 73030; 80048; 80076; 81001; 83605; 83690; 83735; 85025; 85027; 85610; 85730; 87631; 93041; 96372; 96374; 96375; 96376; 97116; 97161; 97165; 97530; 97535; 99285; G0378; J0131; J1650; J1885

== ENCOUNTER 2023-04-16 04:30 | Emergency (ER) | payer MEDICARE ==
[~2023-04-16 04:30] MED LIST changes: +FLOM0.4C39 PO
[2023-04-16 05:13] LABS: BASO # 0.1 10^3/uL (0.0-0.2); BASO % 0.5 % (0.0-1.0); EOS # 0.2 10^3/uL (0.0-0.5); EOS % 2.2 % (0.0-3.0); HEMATOCRIT 41.5 % (42.0-52.0); LYMPH # 1.1 10^3/uL (1.5-5.0); MEAN CORPUSCULAR HEMOGLOBIN 29.7 pg (27.0-33.0); MEAN CORPUSCULAR HGB CONC 31.3 g/dl (32.0-36.5); MONO # 0.7 10^3/uL (0.0-0.8); MONO % 6.4 % (2.0-8.0); NEUTROPHILS # 8.8 10^3/uL (1.5-8.5); NEUTROPHILS % 80.4 % (36.0-66.0); PLATELET COUNT, AUTOMATED 305 10^3/uL (150-450); RED BLOOD COUNT 4.37 10^6/uL (4.30-6.10); WHITE BLOOD COUNT 10.9 10^3/uL (4.0-10.0)
[2023-04-16 05:37] LABS: CK-MB VALUE MASS 2.6 NG/ML (<3.6)
[2023-04-16 05:39] LABS: BLOOD UREA NITROGEN 16 MG/DL (9-23); CALCIUM LEVEL 9.5 MG/DL (8.3-10.6); CARBON DIOXIDE LEVEL 27 MMOL/L (20-31); CHLORIDE LEVEL 107 MMOL/L (98-107); CREATININE FOR GFR 0.79 MG/DL (0.70-1.30); GLOMERULAR FILTRATION RATE > 60.0 (>35); GLUCOSE, FASTING 109 MG/DL (74-106); SODIUM LEVEL 143 MMOL/L (136-145)
[2023-04-16 05:44] LABS: CPK CREATINE PHOSPHOKINASE 112 U/L (46-171); MB/CK RELATIVE INDEX 2.32 (< OR =4)
[2023-04-16 05:54] LABS: INR 1.02; PROTHROMBIN TIME 13.6 SECONDS (12.5-14.5); RSV AMPLIFICATION NEGATIVE (NEGATIVE)
[2023-04-16 05:55] LABS: PARTIAL THROMBOPLASTIN TIME 25.4 SECONDS (24.8-34.2)
[2023-04-16 07:17] VITALS: TEMP 96.8
[2023-04-16] MEDS ORDERED: AMOX875T2 PO (07:42)
[2023-04-16] MEDS ORDERED: AUGMENTIN 875 MG TAB PO ONE (07:45)
[2023-04-16] MEDS ORDERED: ACETAMINOPHEN TAB 650MG DOSE (2X325MG) PO ONE (07:55)
[2023-04-16 08:00] VITALS: BP 143/81; O2SAT 97
[2023-04-16 08:10] LABS: APPEARANCE, URINE CLEAR (CLEAR); BACTERIA, URINE AUTO NEGATIVE (NEGATIVE); BILIRUBIN, URINE AUTO NEGATIVE (NEGATIVE); BLOOD, URINE BLOOD NEGATIVE (NEGATIVE); CALCIUM OXALATE CRYSTALS SMALL; COLOR, URINE YELLOW (YELLOW); GLUCOSE, URINE (UA) AUTO NEGATIVE (NEGATIVE); KETONE, URINE AUTO TRACE mg/dL (NEGATIVE); LEUKOCYTE ESTERASE, URINE AUTO NEGATIVE (NEGATIVE); MUCUS, URINE SMALL (NEGATIVE); NITRITE, URINE AUTO NEGATIVE (NEGATIVE); PROTEIN, URINE AUTO NEGATIVE (NEGATIVE); RBC, URINE AUTO 0 /HPF (0-3); SPECIFIC GRAVITY URINE AUTO 1.019 (1.002-1.035); SQUAMOUS EPITHELIAL CELL UR AU 0 /HPF (0-6); UROBILINOGEN, URINE AUTO 0.2 mg/dL (0.0-2.0); WBC, URINE AUTO 3 /HPF (0-3)
== END 2023-04-16 08:38 | disposition home or self-care (01) ==
LOC: M ED 04:30
DX: S02.2XXA Fracture of nasal bones, initial encounter for closed fracture (principal); R04.0 Epistaxis; W19.XXXA Unspecified fall, initial encounter; Y92.098 Other place in other non-institutional residence as the place of occurrence of the external cause; J34.2 Deviated nasal septum; J32.9 Chronic sinusitis, unspecified; G20 Parkinson's disease; I10 Essential (primary) hypertension; K21.9 Gastro-esophageal reflux disease without esophagitis; F41.9 Anxiety disorder, unspecified; F32.A Depression, unspecified; K50.90 Crohn's disease, unspecified, without complications; Z85.46 Personal history of malignant neoplasm of prostate; Z88.5 Allergy status to narcotic agent; Z88.8 Allergy status to other drugs, medicaments and biological substances; Z79.899 Other long term (current) drug therapy; Z79.82 Long term (current) use of aspirin